=== PATIENT | male | born 1960 | race Caucasian/White ===

== ENCOUNTER 2020-07-30 09:17 | Inpatient (IN) ==
[2020-07-30] MEDS ORDERED: STAT IV Infusion **Titration per Protocol STA (09:40)
[2020-07-30] MEDS ORDERED: dilTIAZem HCl 5 MG/ML 5 ML VIAL IV STA (09:40)
[2020-07-30] MEDS ORDERED: SODIUM CHLORIDE 0.9% 500 ML IV SCH (09:45)
--- NOTE | 2020-07-30 09:46 | Emergency Department Note ---
Impression & Plan Dizziness, Weakness, Atrial fibrillation with rapid ventricular response, Elevated liver enzymes ED Provider Note NAME: MAGDA GIBSON AGE: 60 SEX: M : 1960 ARRIVES VIA: Walk-In INFORMANT: [Patient] ED PROVIDER(S): [Juan Flores MD] CHIEF COMPLAINT: Dizziness HISTORY OF PRESENT ILLNESS: The patient is a 60-year-old male presents to the ER with some dizziness and lightheadedness. He has noticed some mild shortness of breath. No chest pain. No cough, cold, congestion. No vomiting. He had a few episodes of loose stool but nothing bloody or persistent. The patient had taken his blood pressure at home and it was low. He stopped his blood pressure medication over the weekend but, this has not made him feel any better. He also stopped taking Wellbutrin, he was taking this to help quit smoking. Stopping this medication also made no difference. The patient notices that if he chirstelle over and then stands up he is very lightheaded. If he stands quickly, he feels he needs to sit back down. He was referred in by his doctors office at this morning. REVIEW OF SYSTEMS: See HPI for pertinent positives and negatives. A total of ten systems were reviewed and were otherwise negative. PMHx/PSHx: See Below SOCIAL HISTORY: See Below. PHYSICAL EXAM: GENERAL: Patient is in no acute distress. HEENT: No acute trauma, normocephalic atraumatic, mucous membranes moist, no nasal congestion, no scleral icterus. NECK: No stridor, no adenopathy, no meningismus, trachea is midline. LUNGS: Clear to auscultation bilaterally, no wheeze, no rhonchi, breath sounds equal. HEART: Tachycardic and irregular rhythm, no murmurs. ABDOMEN: Soft, nontender, bowel sounds positive, no hernias, no peritonitis. EXTREMITIES: No cyanosis or edema, full range of motion of all the joints without pain or difficulty, no signs for acute trauma. NEUROLOGIC: Oriented x 3, no acute motor or sensory deficits, no focal weakness. SKIN: No rash, no jaundice, no diaphoresis. DIFFERENTIAL DIAGNOSIS: Infection, dehydration, metabolic abnormality, hypo/hyperglycemia, atrial fibrillation or atrial flutter, dysrhythmia, SVT, electrolyte disturbance, anemia, hypoxia, cardiac sources, intracerebral event, toxicologic issues, stroke, TIA, as well as other pathologies. EMERGENCY DEPARTMENT COURSE/PROCEDURES: ECG: Indication was weakness. ECG shows atrial fibrillation with an occasional PVC. The rate is 152. There is no ST elevation. The QTc is 464. No PACs. Continuous Cardiac Monitoring: An order was placed for continuous cardiac monitoring. The monitor shows a rate of 155 with atrial fibrillation. Critical Care Note: I have personally spent 51 minutes of critical care time in the direct management of this patient. This includes bedside care, interpretation of diagnostic studies, and testing, discussion with consultants, patient, and family members, and other required patient management activities. This 51 minutes is in excess of all separately billable procedures. MEDICAL DECISION MAKING: There is no leukocytosis or worrisome anemia. There is a normal platelet count. No coagulopathy. No significant electrolyte abnormality or kidney failure. There are some mild liver enzyme elevations although, the bilirubin is normal. The patient's TSH is slightly elevated however, the T4 is normal. Covid testing is negative. ECG shows rapid atrial fibrillation, no acute ischemic change. Cardiac enzyme testing x1 is not consistent with acute cardiac injury. Chest x- ray does not show mediastinal widening, pneumonia or pneumothorax. Patient is given a 500 cc saline bolus. He received a bolus of IV diltiazem and was placed on a diltiazem drip. The diltiazem was titrated to effect. Patient presents with weakness and dizziness and what he thought was low blood pressure. He is actually in atrial fibrillation and I suspect this has been causing his issues. He is going to be hospitalized. I did speak with the patient and case management. The on-call hospitalist was consulted. Past Med/Surg History Medical History Hypertension Hypothyroidism Social History Smoking Status: Former smoker Tobacco Type: Smokeless Tobacco (Dip or Chew) Second Hand Exposure: No; Do You Dip or Chew Tobacco: No; Tobacco Cessation Education Requested by Patient: No Hx Substance Use: No Preferred Language: Slovenian Flat Bed Knitter Required: No Beliefs That Will Affect Care: None Current Living Situation: Spouse Other Information That Helps Us Care for You: No Feels Safe at Home: Yes Safety Concerns: Feels Safe At This Time Assistive Devices: Glasses Allergies Allergies Allergy/AdvReac Type Severity Reaction Status Date / Time No Known Allergies Allergy Unverified 07/30/20 10:06 Home Meds Home Medications Medication Instructions Recorded Confirmed bupropion HCl 150 mg PO DAILY 07/30/20 07/30/20 levothyroxine 175 mcg PO DAILY 07/30/20 07/30/20 telmisartan 20 mg PO DAILY 07/30/20 07/30/20 Results & Data (ED) Vital Signs Vital Signs - 24 hr 07/30/20 09:21 07/30/20 09:31 07/30/20 09:34 Temperature 36.2 C L Temperature Source Temporal Artery Scan Pulse Rate 77 157 H 146 H Pulse Rate [Left Finger] 155 H Pulse Rate from SpO2 Sensor 79 Pulse Rhythm Respiratory Rate 15 16 20 Respiratory Effort / Characteristics Non-Labored Spontaneous Non-Labored Spontaneous Respiratory Depth Normal Normal Respiratory Pattern Regular Regular Blood Pressure 126/84 142/101 H Blood Pressure [Right Arm] 142/101 H Blood Pressure Mean 98 114 Blood Pressure Mean [Right Arm] 114 Blood Pressure Position Sitting Blood Pressure Position [Right Arm] Lying Pulse Oximetry 97 98 98 Oxygen Delivery Method Room Air Room Air Sepsis Recent Fever Within 48 Hours No Sepsis New/Unexplained Change in Mental Status N/A Sepsis Action Taken by Nursing No Action Required 07/30/20 09:40 07/30/20 09:47 07/30/20 09:50 Temperature Temperature Source Pulse Rate 130 H 153 H 153 H Pulse Rate [Left Finger] Pulse Rate from SpO2 Sensor 82 83 Pulse Rhythm Irregular Respiratory Rate 17 21 18 Respiratory Effort / Characteristics Respiratory Depth Respiratory Pattern Blood Pressure Blood Pressure [Right Arm] Blood Pressure Mean Blood Pressure Mean [Right Arm] Blood Pressure Position Blood Pressure Position [Right Arm] Pulse Oximetry 98 96 97 Oxygen Delivery Method Room Air Room Air Sepsis Recent Fever Within 48 Hours Sepsis New/Unexplained Change in Mental Status Sepsis Action Taken by Nursing 07/30/20 10:00 07/30/20 10:10 07/30/20 10:20 Temperature Temperature Source Pulse Rate 123 H 118 H 124 H Pulse Rate [Left Finger] Pulse Rate from SpO2 Sensor 101 H 105 H 101 H Pulse Rhythm Respiratory Rate 16 21 14 Respiratory Effort / Characteristics Respiratory Depth Respiratory Pattern Blood Pressure 107/90 Blood Pressure [Right Arm] Blood Pressure Mean 95 Blood Pressure Mean [Right Arm] Blood Pressure Position Blood Pressure Position [Right Arm] Pulse Oximetry 96 92 97 Oxygen Delivery Method Sepsis Recent Fever Within 48 Hours Sepsis New/Unexplained Change in Mental Status Sepsis Action Taken by Nursing 07/30/20 10:30 07/30/20 10:40 07/30/20 10:50 Temperature Temperature Source Pulse Rate 140 H 134 H 138 H Pulse Rate [Left Finger] Pulse Rate from SpO2 Sensor 117 H 96 H 80 Pulse Rhythm Respiratory Rate 21 19 14 Respiratory Effort / Characteristics Respiratory Depth Respiratory Pattern Blood Pressure 119/90 Blood Pressure [Right Arm] Blood Pressure Mean 99 Blood Pressure Mean [Right Arm] Blood Pressure Position Blood Pressure Position [Right Arm] Pulse Oximetry 97 97 97 Oxygen Delivery Method Sepsis Recent Fever Within 48 Hours Sepsis New/Unexplained Change in Mental Status Sepsis Action Taken by Nursing 07/30/20 11:00 07/30/20 11:10 Temperature Temperature Source Pulse Rate 133 H 143 H Pulse Rate [Left Finger] Pulse Rate from SpO2 Sensor 92 H 86 Pulse Rhythm Respiratory Rate 16 13 Respiratory Effort / Characteristics Respiratory Depth Respiratory Pattern Blood Pressure 112/91 Blood Pressure [Right Arm] Blood Pressure Mean 98 Blood Pressure Mean [Right Arm] Blood Pressure Position Blood Pressure Position [Right Arm] Pulse Oximetry 98 96 Oxygen Delivery Method Sepsis Recent Fever Within 48 Hours Sepsis New/Unexplained Change in Mental Status Sepsis Action Taken by [facility] Medications Current Medication List: was personally reviewed by me Laboratory Data Attestation: I reviewed the patient's lab results. Result diagrams: 07/30/20 09:47 07/30/20 09:47 Lab Results 07/30/20 07/30/20 07/30/20 Range/Units 09:47 09:47 09:47 WBC 7.22 (4.8-10.8) K/uL RBC 5.03 (4.7-6.1) M/uL Hgb 16.5 (14.0-18.0) g/dL Hct 48.0 (42-52) % MCV 95.4 (80-100) fL MCH 32.8 (25-34) pg MCHC 34.4 (32-36) g/dL RDW Std Deviation 45.0 (36.4-46.3) fL RDW Coeff of Janelle 12.9 (11.5-14.5) % Plt Count 244 (130-400) K/uL MPV 9.5 (7.4-10.4) fL Immature Gran % (Auto) 0.1 % Neut % (Auto) 69.5 % Lymph % (Auto) 15.7 % [place] % (Auto) 13.2 % Eos % (Auto) 1.4 % Baso % (Auto) 0.1 % Neut # (Auto) 5.02 (1.4-6.5) K/uL Lymph # (Auto) 1.13 L (1.2-3.4) K/uL [place] # (Auto) 0.95 H (0.11-0.59) K/uL Eos # (Auto) 0.10 (0-0.5) K/uL Baso # (Auto) 0.01 (0-0.2) K/uL Immature Gran # (Auto) 0.01 (0.00-0.02) K/uL PT 10.1 (9.0-12.0) Seconds INR 1.0 (0.9-1.1) APTT 27.6 (21.0-31.0) Seconds PTT Ratio 1.0 Sodium 136 (136-145) mmol/L Potassium 3.9 (3.5-5.1) mmol/L Chloride 106 (98-107) mmol/L Carbon Dioxide 25 (21-32) mmol/L Anion Gap 5.0 (3-11) BUN 21 H (7-18) mg/dl Creatinine 0.84 (0.6-1.4) mg/dl Est Cr Clr Drug Dosing 120.5 ml/min Est GFR ( Amer) 111.1 ml/min Est GFR (Non-Af Amer) 95.8 ml/min BUN/Creatinine Ratio 24.8 H (10-20) Glucose 88 (70-99) mg/dl Calcium 8.9 (8.5-10.1) mg/dl Magnesium 2.2 (1.8-2.4) mg/dl Total Bilirubin 1.0 (0.2-1) mg/dl AST 56 H (15-37) U/L ALT 123 H (12-78) U/L Alkaline Phosphatase 67 (45-117) U/L Troponin I < 0.015 (0-0.045) ng/ml Total Protein 7.0 (6.4-8.2) gm/dl Albumin 3.9 (3.4-5.0) gm/dl Globulin 3.1 (2.5-4.0) gm/dl Albumin/Globulin Ratio 1.3 (0.9-2) TSH 4.660 H (0.300-4.500) uIu/ml Free T4 1.27 (0.8-1.6) ng/dl COVID-19 Eval Order SARS-CoV-2 (PCR) (Negative) 07/30/20 07/30/20 Range/Units 10:10 10:10 WBC (4.8-10.8) K/uL RBC (4.7-6.1) M/uL Hgb (14.0-18.0) g/dL Hct (42-52) % MCV (80-100) fL MCH (25-34) pg MCHC (32-36) g/dL RDW Std Deviation (36.4-46.3) fL RDW Coeff of Janelle (11.5-14.5) % Plt Count (130-400) K/uL MPV (7.4-10.4) fL Immature Gran % (Auto) % Neut % (Auto) % Lymph % (Auto) % [place] % (Auto) % Eos % (Auto) % Baso % (Auto) % Neut # (Auto) (1.4-6.5) K/uL Lymph # (Auto) (1.2-3.4) K/uL [place] # (Auto) (0.11-0.59) K/uL Eos # (Auto) (0-0.5) K/uL Baso # (Auto) (0-0.2) K/uL Immature Gran # (Auto) (0.00-0.02) K/uL PT (9.0-12.0) Seconds INR (0.9-1.1) APTT (21.0-31.0) Seconds PTT Ratio Sodium (136-145) mmol/L Potassium (3.5-5.1) mmol/L Chloride (98-107) mmol/L Carbon Dioxide (21-32) mmol/L Anion Gap (3-11) BUN (7-18) mg/dl Creatinine (0.6-1.4) mg/dl Est Cr Clr Drug Dosing ml/min Est GFR ( Amer) ml/min Est GFR (Non-Af Amer) ml/min BUN/Creatinine Ratio (10-20) Glucose (70-99) mg/dl Calcium (8.5-10.1) mg/dl Magnesium (1.8-2.4) mg/dl Total Bilirubin (0.2-1) mg/dl AST (15-37) U/L ALT (12-78) U/L Alkaline Phosphatase (45-117) U/L Troponin I (0-0.045) ng/ml Total Protein (6.4-8.2) gm/dl Albumin (3.4-5.0) gm/dl Globulin (2.5-4.0) gm/dl Albumin/Globulin Ratio (0.9-2) TSH (0.300-4.500) uIu/ml Free T4 (0.8-1.6) ng/dl COVID-19 Eval Order Covid19 at [facility] SARS-CoV-2 (PCR) NEGATIVE (Negative) Administered Medications Aspirin (Aspirin 81 Mg Ectab) 81 mg PO QAM [facility] Stop: 08/29/20 14:30 Last Admin: 07/30/20 15:38 Dose: 81 mg Documented by: [id number] Diltiazem HCl 125 mg/ Dextrose 125 mls @ 15 mls/hr IV .Q8H20M DANIELA; Protocol Stop: 08/29/20 09:44 Last Titration: 07/30/20 17:10 Dose: 10 mg/hr, 10 mls/hr Documented by: [id number] Cosigned by: [id number] Titration: 07/30/20 11:33 Dose: 15 mg/hr, 15 mls/hr Documented by: [id number] Cosigned by: [id number] Titration: 07/30/20 11:01 Dose: 10 mg/hr, 10 mls/hr Documented by: [id number] Cosigned by: [id number] Admin: 07/30/20 10:20 Dose: 5 mg/hr, 5 mls/hr Documented by: [id number] Cosigned by: [id number] Metoprolol Tartrate (Metoprolol Tartrate 25 Mg Tab) 25 mg PO BID DANIELA Stop: 08/29/20 20:59 Last Admin: 07/30/20 15:39 Dose: 25 mg Documented by: [id number] Discontinued Medications Diltiazem HCl (Diltiazem Hcl 5 Mg/Ml 5 Ml Vial) 15 mg IV NOW STA Stop: 07/30/20 09:41 Last Admin: 07/30/20 09:55 Dose: 15 mg Documented by: [id number] Cosigned by: [id number] Sodium Chloride (Nss) 500 mls @ 999 mls/hr IV .Q31M DANIELA Stop: 07/30/20 10:15 Last Infusion: 07/30/20 10:22 Dose: 0 mls/hr Documented by: [id number] Admin: 07/30/20 09:50 Dose: 999 mls/hr Documented by: [id number] Miscellaneous (Stat Iv Infusion Titration Per Protocol) 1 ea N/A NOW STA Stop: 07/30/20 09:41 Last Admin: 07/30/20 14:24 Dose: Not Given Documented by: [id number] Imaging Data Radiologist's Impression: Chest X-Ray 07/30/20 09:40 XR chest 1V portable CLINICAL HISTORY: weakness COMPARISON STUDY: November 2013 FINDINGS: The heart is borderline enlarged. There is no failure. There is no focal pulmonary consolidation. There are no pleural effusions.[ IMPRESSION: No active disease in the chest. ACT 112: Negative or not required by law. Electronically signed by: Gonsalo Dimas M.D. 07/30/2020 9:58 AM Discharge Plan Visit Data Chief Complaint: Dizziness Stated Complaint: LIGHT HEADED, REFERRED BY ED Provider: Juan Flores Discharge Problem: Dizziness, Weakness, Atrial fibrillation with rapid ventricular response, Elevated liver enzymes Patient Disposition: Admitted As Inpatient Condition: Fair Discharge Instructions Interventions: ED Discharge Assessment Last Done: 07/30/20 13:46
--- NOTE | 2020-07-30 09:59 | XRay Report ---
XR chest 1V portable CLINICAL HISTORY: weakness COMPARISON STUDY: November 2013 FINDINGS: The heart is borderline enlarged. There is no failure. There is no focal pulmonary consolid ation. There are no pleural effusions.[ IMPRESSION: No active disease in the chest. ACT 112: Negative or not required by law. Electronically signed by: Gonsalo Dimas M.D. 07/30/2020 9:58 AM
[2020-07-30 10:02] LABS: Basophils # (auto) 0.01 K/uL (0-0.2); Basophils % (auto) 0.1 %; Eosinophils % (auto) 1.4 %; Hemoglobin 16.5 g/dL (14.0-18.0); Immature Granulocytes # (auto) 0.01 K/uL (0.00-0.02); Immature Granulocytes % (auto) 0.1 %; Lymphocytes # (auto) 1.13 K/uL (1.2-3.4); Lymphocytes % (auto) 15.7 %; Mean Corpuscular Hemoglobin 32.8 pg (25-34); Mean Corpuscular Hgb Conc 34.4 g/dL (32-36); Mean Corpuscular Volume 95.4 fL (80-100); Mean Platelet Volume 9.5 fL (7.4-10.4); Monocytes # (auto) 0.95 K/uL (0.11-0.59); Monocytes % (auto) 13.2 %; Neutrophils # (auto) 5.02 K/uL (1.4-6.5); Neutrophils % (auto) 69.5 %; Platelet Count 244 K/uL (130-400); RDW Coefficient of Variation 12.9 % (11.5-14.5); Red Blood Count 5.03 M/uL (4.7-6.1); White Blood Count 7.22 K/uL (4.8-10.8)
[2020-07-30 10:16] LABS: Prothrombin Time 10.1 Seconds (9.0-12.0)
[2020-07-30] MEDS: dilTIAZem HCL 125 MG in DEXTROSE 5% 100 ML IV SCH ×2 (10:20→23:11)
[2020-07-30 10:24] LABS: Alanine Aminotransferase 123 U/L (12-78); Albumin Level 3.9 gm/dl (3.4-5.0); Aspartate Aminotransferase 56 U/L (15-37); BUN Creatinine Ratio 24.8 (10-20); Blood Urea Nitrogen 21 mg/dl (7-18); Calcium 8.9 mg/dl (8.5-10.1); Carbon Dioxide 25 mmol/L (21-32); Chloride 106 mmol/L (98-107); Creatinine Clr Calc Pharmacy 120.5 ml/min; Est GFR (African American) 111.1 ml/min; Est GFR (Non-African American) 95.8 ml/min; Glucose 88 mg/dl (70-99); Magnesium 2.2 mg/dl (1.8-2.4); Potassium 3.9 mmol/L (3.5-5.1); Sodium 136 mmol/L (136-145)
[2020-07-30 10:34] LABS: Albumin Globulin Ratio 1.3 (0.9-2); Alkaline Phosphatase 67 U/L (45-117); Globulin 3.1 gm/dl (2.5-4.0); Troponin I < 0.015 ng/ml (0-0.045)
[2020-07-30 10:47] LABS: T4 Free Thyroxine 1.27 ng/dl (0.8-1.6)
[2020-07-30 10:54] LABS: Partial Thromboplastin Time 27.6 Seconds (21.0-31.0)
--- NOTE | 2020-07-30 11:16 | History & Physical Report ---
Date of Service July 30, 2020 Assessment & Plan (1) Rapid atrial fibrillation: Admit to a PCU bed Continue Cardizem drip as started in ER, currently at 10mg/hr Will start oral metoprolol at 25 mg p.o. twice daily Hold ARB for now Patient's [id number] score is 1, hold full anticoagulation. Will start low- dose aspirin. Check fasting lipids Check 2D echo Trend troponins Consult cardiology, patient is requesting Dr. Britt who cares for his (2) Hypertension: Hold telmisartan as noted above Low-dose metoprolol along with Cardizem drip (3) Hypothyroidism: Continue levothyroxine 100 mcg daily TSH is 4.66 in ER History of Present Illness Chief Complaint: Generalized weakness Primary Care Provider: Criss Rondon DO This is a 60-year-old male with past medical history of hypertension and hypothyroidism presents today complaining of dizziness and generalized weakness. Patient is pleasant good historian. Patient tells me that he has been feeling mildly fatigued over the past several weeks. This became worse sometime last week. He found that he was much more weak than usual. He denied any shortness of breath or chest pain. Also denied palpitations. He took his blood pressure and noted o his cuff at home that it was low with systolic in the 80s. He noted that the heart rate was around 100 but he thought this was secondary to activity. He is on blood pressure medicine at home which he discontinued but felt no better. Over the weekend it started to become difficult for him to tolerate standing for long periods of time and he presents to the emergency room this morning for further evaluation. Here he was found to be in rapid atrial fibrillation and is now being admitted for this reason. At the time my evaluation, patient is in no cardiopulmonary distress. His heart rate is in the [id number] and his atrial fibrillation on monitor. Last documented blood pressure is 119/90. Patient does tell me he feels somewhat better. Allergies Allergy/AdvReac Type Severity Reaction Status Date / Time No Known Allergies Allergy Unverified 07/30/20 10:06 Home Medications Medication Instructions Recorded Confirmed Type bupropion HCl 150 mg PO DAILY 07/30/20 07/30/20 History levothyroxine 175 mcg PO DAILY 07/30/20 07/30/20 History telmisartan 20 mg PO DAILY 07/30/20 07/30/20 History Past Med/Surg History Social History Smoking Status: Current every day smoker Tobacco Type: Smokeless Tobacco (Dip or Chew) Preferred Language: Romanian Feels Safe at Home: Yes Review of Systems Constitutional: + fatigue and + weakness; no fever, no chills, no sweats, no body aches, no malaise, no weight loss, no weight gain and no daytime sleepiness Respiratory: no cough, no chest congestion, no dyspnea, no dyspnea on exertion, no pain on inspiration, no pain with cough and no stopping breathing during sleep Cardiovascular: + lightheadedness and + edema; no chest pain, no dyspnea, no orthopnea, no palpitations, no syncope and no calf pain Gastrointestinal: no abdominal pain, no nausea, no vomiting, no change in stools and no constipation Musculoskeletal: no back pain, no neck pain, no loss of height, no joint pain, no swelling and no stiffness Integumentary: no rash and no lesions Neurologic: no gait abnormality, no unsteadiness, no localized weakness and no generalized weakness Psychiatric: no behavioral changes and no depression Endocrine: no fatigue, no change in body appearance and no polyuria Physical Exam Constitutional: well developed, cooperative and comfortable; no acute distress Neck: trachea midline, no thyromegaly Respiratory: normal respiratory effort, lungs clear to auscultation Cardiovascular: Rate/Rhythm: + tachycardic and + irregularly irregular Vessels: no JVD and no carotid bruit Gastrointestinal (Abdomen): normal bowel sounds, soft, nontender, no hepatosplenomegaly Skin: no rashes, warm and dry Neurologic: PERRL, EOMI, accommodation nl, no face palsy, no dysarthria Results & Data Results & Data ([facility]) Vital Signs (Past 12 Hours) Vital Signs Temp Pulse Pulse Resp BP BP Pulse Ox 07/30/20 10:40 134 H 19 97 07/30/20 10:30 140 H 21 119/90 97 07/30/20 10:20 124 H 14 97 07/30/20 10:10 118 H 21 92 07/30/20 10:00 123 H 16 107/90 96 07/30/20 09:50 153 H 18 97 07/30/20 09:47 153 H 21 96 07/30/20 09:40 130 H 17 98 07/30/20 09:34 146 H 20 98 05/24/21 09:31 157 H 155 H 16 142/101 H 142/101 H 98 07/30/20 09:21 36.2 C L 77 15 126/84 97 PG Care Time/CCT Total # of Minutes Spent Total Time Spent with Patient: Total time spent is greater than 50% in coordination of care (as documented) at patient's floor/unit and/or counseling patient: Coding Level of Care Code 92433 Initial Inpt Care Lvl 3 Diagnoses Rapid atrial fibrillation I48.91 Hypertension I10 Hypothyroidism E03.9
[2020-07-30] MEDS ORDERED: ACETAMINOPHEN 325 MG TAB PO PRN (14:31)
[2020-07-30] MEDS ORDERED: ZOLPIDEM TARTRATE 5 MG TAB PO PRN (14:31)
--- NOTE | 2020-07-30 14:34 | Electrocardiogram Report ---
Test Reason : Blood Pressure : / mmHG Vent. Rate : 152 BPM Atrial Rate : 178 BPM P-R Int : 000 ms QRS Dur : 078 ms QT Int : 292 ms P-R-T Axes : 000 040 030 degrees QTc Int : 464 ms Atrial fibrillation with rapid ventricular response with premature ventricular or aberrantly conducte d complexes Abnormal ECG No previous ECGs available Confirmed by Nomi Veliz ([id number]) on 07/30/2020 2:34:30 PM Referred By: Criss Rondon Confirmed By:Nomi Veliz
[2020-07-30] MEDS: ASPIRIN 81 MG ECTAB PO SCH (15:38)
[2020-07-30] MEDS: METOPROLOL TARTRATE 25 MG TAB PO SCH ×2 (15:39→20:24)
--- NOTE | 2020-07-30 16:25 | XCELERA ---
[id number]
[2020-07-31 02:45] LABS: Basophils # (auto) 0.01 K/uL (0-0.2); Basophils % (auto) 0.1 %; Eosinophils # (auto) 0.12 K/uL (0-0.5); Eosinophils % (auto) 1.5 %; Hematocrit (blood only) 43.3 % (42-52); Hemoglobin 14.7 g/dL (14.0-18.0); Immature Granulocytes # (auto) 0.01 K/uL (0.00-0.02); Immature Granulocytes % (auto) 0.1 %; Lymphocytes # (auto) 1.67 K/uL (1.2-3.4); Lymphocytes % (auto) 20.8 %; Mean Corpuscular Hemoglobin 32.1 pg (25-34); Mean Corpuscular Hgb Conc 33.9 g/dL (32-36); Mean Corpuscular Volume 94.5 fL (80-100); Mean Platelet Volume 9.2 fL (7.4-10.4); Monocytes # (auto) 0.94 K/uL (0.11-0.59); Monocytes % (auto) 11.7 %; Neutrophils # (auto) 5.28 K/uL (1.4-6.5); Neutrophils % (auto) 65.8 %; Platelet Count 227 K/uL (130-400); RDW Coefficient of Variation 13.1 % (11.5-14.5); RDW Standard Deviation 45.4 fL (36.4-46.3); Red Blood Count 4.58 M/uL (4.7-6.1); White Blood Count 8.03 K/uL (4.8-10.8)
[2020-07-31 03:03] LABS: BUN Creatinine Ratio 25.7 (10-20); Blood Urea Nitrogen 20 mg/dl (7-18); Calcium 8.4 mg/dl (8.5-10.1); Carbon Dioxide 26 mmol/L (21-32); Chloride 110 mmol/L (98-107); Creatinine Clr Calc Pharmacy 117.1 ml/min; Est GFR (African American) 113.9 ml/min; Est GFR (Non-African American) 98.3 ml/min; Glucose 93 mg/dl (70-99); Magnesium 2.5 mg/dl (1.8-2.4); Potassium 4.1 mmol/L (3.5-5.1); Sodium 142 mmol/L (136-145)
[2020-07-31 03:08] LABS: Chol HDL Ratio 4; Cholesterol 164 mg/dl (0-200); HDL Cholesterol 41 mg/dl; LDL Cholesterol Calculated 93 mg/dl; Triglycerides 150 mg/dl (0-150); Troponin I < 0.015 ng/ml (0-0.045); VLDL Cholesterol 30 mg/dl
[2020-07-31] MEDS ORDERED: LEVOTHYROXINE SODIUM 175 MCG TABLET PO SCH (06:30)
[2020-07-31] MEDS: ASPIRIN 81 MG ECTAB PO SCH (07:57)
[2020-07-31] MEDS: METOPROLOL TARTRATE 25 MG TAB PO SCH (07:57)
[2020-07-31] MEDS ORDERED: buPROPion SR 150 MG TABCR PO SCH (09:00)
--- NOTE | 2020-07-31 09:37 | Cardiology Consultation ---
Date of Consultation July 31, 2020 Assessment & Plan (1) Rapid atrial fibrillation: Impression: 1. Afib with RVR now converted spontaneously to SR 2. HTN 3. Mild aortic dilatation Mr. Bobby is doing quite well and is now in a SR. He is not having any further symptoms. His troponins were normal x 3. His echocardiogram shows normal LVF, mild mitral regurg and mild aortic dilatation of 4.2 cm. Electrolytes are wnl. TSH was mildly elevated but T4 was normal. He should continue metoprolol at discharge. His CHADS-VASc is 1 and so he was not started on anticoagulation. We discussed risk of stroke in the setting of atrial fibrillation and that we may eventually decide to add anticoagulation. He can continue taking a daily baby aspirin. His lipids were acceptable. His ASCVD risk score is 7%. We can discuss initiating a statin at his follow up visit in the clinic. We discussed possible irritants to avoid for afib such as excessive caffeine, decongestants, Afrin, alcohol. He has has quit chew recently and plans to continue with abstinence. He mentions that there is a CO problem in his new house. He stays there unless the CO monitor is alerting him of a high level. We discussed that he should not stay in his house until the CO problem has been resolved. It is certainly possible that if he was suffering mild CO poisoning it could have triggered his arrhythmia. He did have a run of NSVT. His echocardiogram showed normal LVF. He should continue with metoprolol. He will follow up in the cardiology clinic in a month. History of Present Illness Attending Physician: Bigg Fernandez DO History of Present Illness Mr. Bobby presented to the hospital after feeling unwell over the weekend. He felt some fluttering in his chest as well as fatigue and sob. He was light headed and checked his blood pressure at work on Thursday and found that he was running in the 80s systolically. He was found to be in an Afib RVR when he presented to the ED. He converted to a sinus rhythm yesterday afternoon and has been maintained in one since. He feels well, no symptoms. Denies any further sob or palpitations. No chest pain or pressure. No edema. He was sinus rhythm overnight with one 15 beat episode of Vtach Allergies Allergy/AdvReac Type Severity Reaction Status Date / Time No Known Allergies Allergy Unverified 07/30/20 10:06 Home Medications Medication Instructions Recorded Confirmed Type bupropion HCl 150 mg PO DAILY 07/30/20 07/30/20 History levothyroxine 175 mcg PO DAILY 07/30/20 07/30/20 History metoprolol tartrate 25 mg PO BID 30 Days #60 tab 07/31/20 Rx Patient History Medical History Hypertension Hypothyroidism Family History (Updated 07/31/20 @ 09:51 by JOSÉ MIGUEL Childs) Father Hypertension Social History Smoking Status: Former smoker Tobacco Type: Smokeless Tobacco (Dip or Chew) Second Hand Exposure: No; Do You Dip or Chew Tobacco: No; Tobacco Cessation Education Requested by Patient: No Hx Substance Use: No Preferred Language: Maldivian Computer System Specialist Required: No Beliefs That Will Affect Care: None Current Living Situation: Spouse Other Information That Helps Us Care for You: No Feels Safe at Home: Yes Safety Concerns: Feels Safe At This Time Assistive Devices: Glasses Review of Systems Review of Systems: All systems reviewed & are unremarkable except as noted in HPI & below Physical Exam Constitutional: WD/WN, vitals as above Respiratory: normal respiratory effort, lungs clear to auscultation Cardiovascular: RRR, no murmur, no edema Musculoskeletal: no cyanosis or clubbing, extremities motor strength 5/5 Skin: no rashes, warm and dry Neurologic: moves all extremities and awake Psychiatric: A+Ox3, euthymic affect Results & Data ([facility]) Vital Signs (Past 12 Hours) Vital Signs Temp Pulse Pulse Resp BP Pulse Ox 07/31/20 09:00 56 L 07/31/20 07:05 36.5 C 57 L 20 122/73 96 07/31/20 03:02 36.6 C 58 L 17 114/77 96 07/30/20 23:42 36.9 C 52 L 17 109/71 95 07/30/20 23:08 56 L
--- NOTE | 2020-07-31 11:01 | Med Student Discharge Summary ---
Date of Service July 31, 2020 Admission HPI Per Admitting Provider This is a 60-year-old male with past medical history of hypertension and hypothyroidism presents today complaining of dizziness and generalized weakness. Patient is pleasant good historian. Patient tells me that he has been feeling mildly fatigued over the past several weeks. This became worse sometime last week. He found that he was much more weak than usual. He denied any shortness of breath or chest pain. Also denied palpitations. He took his blood pressure and noted o his cuff at home that it was low with systolic in the 80s. He noted that the heart rate was around 100 but he thought this was secondary to activity. He is on blood pressure medicine at home which he discontinued but felt no better. Over the weekend it started to become difficult for him to tolerate standing for long periods of time and he presents to the emergency room this morning for further evaluation. Here he was found to be in rapid atrial fibrillation and is now being admitted for this reason. At the time my evaluation, patient is in no cardiopulmonary distress. His heart rate is in the [id number] and his atrial fibrillation on monitor. Last documented blood pressure is 119/90. Patient does tell me he feels somewhat better. Admission Exam (Per Admitting) Constitutional well developed and well nourished; no acute distress this is the DISCHARGE exam Respiratory no respiratory distress Auscultation: lungs clear to auscultation bilaterally; no crackles, no rales and no rhonchi Cardiovascular Heart Sounds: normal S1 and normal S2; no gallop, no murmur and no cardiac rub Extremities: no calf tenderness and no pedal edema Gastrointestinal (Abdomen) Inspection/Auscultation: abdomen normal to inspection and normal bowel sounds; abdomen not distended Percussion/Palpation: abdomen soft; abdomen nontender, no guarding and abdomen not rigid Discharge Data Consultations 07/30/20 10:50 ED Decision to Admit Stat 07/30/20 14:31 Consult Cardiology Routine Consult Cardiology Routine Hospital Course (1) Atrial fibrillation with rapid ventricular response: 60 yo male with a pmh of HTN and hypothyroidism and MEGHNA presented to the ED with lightheadedness and was found to have Afib with RVR on EKG. He was given IV Diltiazem bolus and then put on a drip. Troponin levels were undetectable. He converted to sinus rhythm and has remained in sinus rhythm since then. Cardiac echo showed a normal EF of 55-60% with and mild regurgitation and borderline LV hypertrophy. TSH level 4.66 on Levo. His chadsvasc score is 1 with a 1.5% yearly risk of stroke. Weighing risk of bleeding with risk of forming and an embolism and termite control technician consequence of either complications, it is likly more favorable to have patient on anticoagulation treatment. 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 Plan -discuss starting Eliquis for stroke prevention with pcp -start metoprolol for rhythm control in addition to blood pressure control -patient does have a cpap but has not been using it. Follow up with pcp on restarting cpap and possibility of needing a new prescription. (2) Hypertension: chronic. Managed by pcp. Takes Telmisartan 20 mg. was held during hospital stay. Has had low BP readings with the Afib episodes. Metoprolol was started. Well tolerated by patient and BP has been stable during hospital stay Plan -stop Telmisartan -start metoprolol tartrate 25 mg for rhythm control in addition to blood pressure control -f/u with pcp in 2-3 weeks to further discuss BP managment and whether an additional medication in needed (3) Hypothyroidism: chronic. Managed by pcp. Takes Levothyroxine 175 mcg. Was given one home does during hospital stay. TSH 4.66 Plan -continue current home dose and outpatient f/c (4) Elevated liver enzymes: Slightly elevated liver enzymes noted on CMP. Patient only drinks alcohol occasionally so this is unlikely caused by alcohol used, could be due to ELIZABETH. -Follow up outpatient CMP with PCP in 2 weeks Discharge Plan Discharge Items Patient Disposition: Home - Self-Care Reason For Visit: RAPID AF Discharge Diagnosis: atrial fibrillation with rapid ventricular rate Condition on Discharge: Fair Activity: Per Instructions section Non-emergency contact: Primary Care Provider and Gis Coordinator Call non-emergency contact if: you have any medication questions, your symptoms worsen and your pain is worsening Follow-up/Referrals: Criss Rondon DO [Primary Care Provider] - 08/07/20 3:50 pm (YOU WILL SEE: JOSÉ MIGUEL French) Diet: Heart Healthy Addtl Attending Provider Instructions: You were seen and admitted for concerns regarding your fast heart rate. During this admission, your heart rhythm was determined to be in a rhythm called atrial fibrillation with rapid ventricular rate. This was corrected with medications, and you were able to have your heart rate maintained at an appropriate rate. We additionally discussed the role of a blood thinner in preventing strokes as a result of this different rhythm, and while we feel this is important in order to prevent strokes you declined to start this medication at this time. In continuing to discuss this medication with your family doctor and your certified travel counselor as while at this time you felt your heart being in the different rhythm, this can happen without you being able to feel it and that could potentially cause you to have a stroke in the future. Pending Studies at Discharge: No Stand-Alone Forms: My [facility] OOTU, Smoking Cessation Medications and DC Order Prescriptions: New metoprolol tartrate 25 mg Tablet 25 mg PO BID 30 Days Qty: 60 RF: 0 Continued levothyroxine 175 mcg tablet 175 mcg PO DAILY RF: 0 bupropion HCl 150 mg tablet sustained-release 12 hr 150 mg PO DAILY RF: 0 Discontinued telmisartan 20 mg tablet 20 mg PO DAILY RF: 0 Discharge Orders: Discharge Order (Routine); Ordered 07/31/20 Ordered By: Michael Weinstein/Other Patient Handouts: AFL/Afib, Stroke Prevent Live W Atrial Fib, Understanding Atrial Fibrillation Admission Data Admit Date/Time: 07/30/20 11:19 Attending Provider: Bigg Fernandez Admit Provider: Amadeo Amador Primary Care Provider: Criss Rondon Other Providers: Ildefonso Britt ; Amadeo Amador Other Interventions: Discharge Summary Assessment (RN) Last Done: 07/31/20 12:34 Supervising Attestation I personally examined the patient and verified all alejandro points of history and exam, discussed case, and agree with decision making with Zuhair HERNANDEZ. Feeling better and feeling up to going home. Notes that he has sleep apnea, but needs a new CPAP. Vitals noted, in general he is awake and alert pleasant no distress. HEENT normocephalic atraumatic mucous membranes moist. Breathing unlabored no accessory muscle use good effort. Otherwise as above. New onset atrial fibrillationnow converted to sinus rhythm, making rate control easily. Sent home on metoprolol. Discussed risks and benefits of anticoagul ation at a [id number] of 1for now he is opting to hold off, but discussed with him he should have ongoing discussions with his PCP. Should update CPAP device, given that untreated sleep apnea can certainly be provoking for A. fib. Slight transaminitisquestion fatty liveroutpatient follow-up. Stable for home, otherwise as above
--- NOTE | 2020-07-31 14:18 | Electrocardiogram Report ---
Test Reason : Blood Pressure : / mmHG Vent. Rate : 058 BPM Atrial Rate : 058 BPM P-R Int : 148 ms QRS Dur : 098 ms QT Int : 418 ms P-R-T Axes : 062 056 043 degrees QTc Int : 410 ms Sinus bradycardia Possible Left atrial enlargement Borderline ECG When compared with ECG of 30-JUL-2020 09:36, Sinus rhythm has replaced Atrial fibrillation Vent. rate has decreased BY 94 BPM Confirmed by Nomi Veliz ([id number]) on 07/31/2020 2:17:29 PM Referred By: Criss Rondon Confirmed By:Nomi Veliz
--- NOTE | 2020-07-31 19:04 | Billing Data ---
Date of Service July 31, 2020 Coding Level of Care Code D/C Day Management <30 mins
== END 2020-07-31 12:59 | disposition home or self-care (01) | DRG 310 ==
LOC: ED 09:17 → 2S 11:19 → SUATTDRO 11:19 → 2S 13:46

== ENCOUNTER 2024-03-15 05:59 | Observation (INO) ==
--- NOTE | 2024-03-08 13:23 | Anesthesiology Consultation ---
Date of Service March 08, 2024 Assessment & Plan (1) Encounter for pre-operative examination: Chart Review Chart Review: Acceptable Risk for Surgery and Patient NOT seen in Pre Admission Testing Per cardio phone note 01/11/24 in regards to holding AC prior to surgery= "He can hold his anticoagulation for up to 72 hours ahead of procedure per surgery and resume SIERRA." -Infectious Disease screening: Per PAT nursing assessment on 02/29/24. No known infectious disease contacts in past 10 days or current infectious disease symptoms. No recent travel outside the country. History Surgery Operation Date: 03/15/24 07:30 Proposed Procedures p Robotic Assisted Laparoscopic Radical Retropubic Prostatectomy, Possible Open, Possible Pelvic Lymph Node Dissection - Jian Mcmanus MD Height/Weight Height: 6 ft 2 in Weight: 104.326 kg Allergies Allergy/AdvReac Type Severity Reaction Status Date / Time ezetimibe Allergy Intermediate Edema, Verified 02/29/24 12:33 face, hands, legs Statins AdvReac Intermediate Joint Pain Uncoded 02/29/24 12:33 Medications Home Medications Medication Instructions Recorded Confirmed Last Taken bupropion HCl 150 mg 24 hr tablet, 150 mg PO QAM 05/12/22 02/29/24 Unknown extended release diltiazem HCl 180 mg 180 mg PO QPM 05/12/22 02/29/24 Unknown capsule,extended release 24 hr levothyroxine 25 mcg tablet 25 mcg PO QPM 05/12/22 02/29/24 Unknown telmisartan 20 mg tablet 20 mg PO QPM 05/12/22 02/29/24 Unknown levothyroxine 200 mcg tablet 250 mcg PO QPM 10/26/23 02/29/24 Unknown [place]ail Mushroom 1 unit PO QAM 02/29/24 02/29/24 Unknown apixaban 5 mg tablet (Eliquis) 5 mg PO BID 02/29/24 02/29/24 Unknown finasteride 5 mg tablet 5 mg PO QAM 02/29/24 02/29/24 Unknown meclizine 50 mg tablet (Antivert) 50 mg PO BID PRN Vertigo 02/29/24 02/29/24 Unknown tamsulosin 0.4 mg capsule 0.4 mg PO QAM 02/29/24 02/29/24 Unknown Past Medical History Medical History (Updated 03/08/24 @ 13:12 by Katrina Rodriguez PA-C) Arthritis Atrial fibrillation follows with dr. chang, no cardioversion on Eliquis BPH w urinary obs/LUTS Hx of basal cell carcinoma Hx of dizziness Hx of eczema Hx of seborrheic keratosis Hyperlipidemia Hypertension Hypothyroidism MEGHNA on CPAP Prostate cancer recently diagnosed per 01/11/24 urology note Past Family History Family History Father Hypertension Mother Hypertension Skin cancer Sister Hypothyroidism Past Surgical History Surgical History History of basal cell carcinoma (BCC) excision History of surgery on right wrist (2004) pin Hx of colonoscopy with polypectomy Hx of prostate biopsy (2023) cancer Social History Smoking Status: Former smoker Do You Dip or Chew Tobacco: No Smoking End Date: quit 30-40 years ago- uses zin nicotine pouches Hx Alcohol Use: Yes alcohol intake frequency: holidays/special occasions only Hx Substance Use: No substance use type: does not use Lab Results Anesthesia Preop Results Results Anesthesia Widget: WBC 7.54 K/ul (4.8-10.8) 03/04/24 Hgb 16.9 g/dl (14.0-18.0) 03/04/24 Hct 49.0 % (42.0-52.0) 03/04/24 Plt 268 K/uL (130-400) 03/04/24 Na 140 mmol/L (136-145) 03/04/24 K 4.0 mmol/L (3.5-5.1) 03/04/24 Cl 104 mmol/L (98-107) 03/04/24 CO2 28 mmol/L (21-32) 03/04/24 BUN 17 mg/dl (6-23) 03/04/24 Creat 0.95 mg/dl (0.6-1.4) 03/04/24 Glucose Level 78 mg/dl (70-99(Fasting)) 03/04/24 Testing Laboratory Results 03/04/24= URINE CULTURE: No growth- less than 1000 colonies/mL Electrocardiogram Date: 03/04/24 Findings: + NSR @ (66bpm) Normal EKG per cardio Chest X-Ray Date: 03/04/24 Findings: + NAD Echocardiogram Date: 07/30/20 EF: 55-60% LV Function: normal RWMA: + none Other Findings: + LVH (borderline/concentric) Valvular Disease: + MR (mild) Borderline left atrial enlargement Other Testing Cervical MRI 12/11/23= 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 No high-grade central canal narrowing. Normal signal of the cervical spinal cord.
[2024-03-15] MEDS: LR 15ML/HR IV SCH (06:31)
[2024-03-15] MEDS: HEPARIN SOD 5,000 UNIT/0.5 ML VIAL SQ SCH ×2 (06:35→20:46)
[2024-03-15] MEDS ORDERED: LIDOCAINE 2% 2 ML VIAL/AMP(20MG/ML) INFIL ONE (06:44)
[2024-03-15] MEDS ORDERED: ROCURONIUM BROMIDE 10 MG/ML 5 ML VIAL IV ONE (06:44)
[2024-03-15] MEDS ORDERED: PROPOFOL IV EMULSION 10 MG/ML 20 ML VIAL IV ONE (06:44)
[2024-03-15] MEDS ORDERED: ONDANSETRON INJ 2 MG/ML 2 ML VIAL ONE (06:44)
[2024-03-15] MEDS ORDERED: DEXAMETHASONE SOD INJ 4 MG/ML VIAL ONE (06:44)
[2024-03-15] MEDS ORDERED: SUGAMMADEX SODIUM 200 MG/2 ML VIAL IV ONE (06:45)
[2024-03-15] MEDS ORDERED: KETAMINE HCL 10MG/ML SYR ONE (06:45)
[2024-03-15] MEDS ORDERED: fentaNYL citrate PF 100 MCG/2 ML VIAL ONE (06:45)
[2024-03-15] MEDS ORDERED: MIDAZOLAM HCL 1 MG/ML 2ML VIAL ONE (06:45)
[2024-03-15] MEDS ORDERED: fentaNYL citrate PF 100 MCG/2 ML VIAL IV PRN (07:03)
[2024-03-15] MEDS ORDERED: ONDANSETRON INJ 2 MG/ML 2 ML VIAL IV PRN ×2 (07:03→12:42)
[2024-03-15] MEDS ORDERED: ATROPINE SULFATE 0.1 MG/ML 10ML SYR IV PRN (07:03)
[2024-03-15] MEDS ORDERED: ePHEDrine sulfate 50 MG/ML AMP IV PRN (07:03)
[2024-03-15] MEDS ORDERED: HYDROmorphone INJ 2 MG/ML SYR/VIAL IV PRN (07:03)
--- NOTE | 2024-03-15 07:23 | History & Physical Report ---
Date of Service March 15, 2024 Assessment & Plan (1) Prostate cancer: Plan: Moderate risk prostate cancer presenting for robotic prostatectomy risks, benefits, and expectations reviewed History of Present Illness Primary Care Provider: Criss Rondon DO prostate cancer presenting for definitive treatment via prostatectomy Allergies Allergy/AdvReac Type Severity Reaction Status Date / Time ezetimibe Allergy Intermediate Edema, Verified 03/15/24 06:15 face, hands, legs [id number] Reductase AdvReac Intermediate Joint Pain Verified 03/15/24 07:16 Inhibitor Home Medications Medication Instructions Recorded Confirmed Type bupropion HCl 150 mg 24 hr tablet, 150 mg PO QAM 05/12/22 03/15/24 History extended release diltiazem HCl 180 mg 180 mg PO QPM 05/12/22 03/15/24 History capsule,extended release 24 hr telmisartan 20 mg tablet 20 mg PO QPM 05/12/22 03/15/24 History levothyroxine 200 mcg tablet 200 mcg PO QPM 10/26/23 03/15/24 History [place] Tail Mushroom 1 unit PO QAM 02/29/24 03/15/24 History apixaban 5 mg tablet (Eliquis) 5 mg PO BID 02/29/24 03/15/24 History finasteride 5 mg tablet 5 mg PO QAM 02/29/24 03/15/24 History meclizine 50 mg tablet (Antivert) 50 mg PO BID PRN Vertigo 02/29/24 03/15/24 History tamsulosin 0.4 mg capsule 0.4 mg PO QAM 02/29/24 03/15/24 History levothyroxine 50 mcg tablet 50 mcg PO QPM 03/15/24 03/15/24 History Past Med/Surg History Problem List Encounter for pre-operative examination Prostate cancer BPH w urinary obs/LUTS MEGHNA on CPAP Low testosterone Left arm weakness Elevated PSA Weakness (Acute) Hypothyroidism Hypertension Hx of colonic polyps Medical History Atrial fibrillation follows with dr. chang, no cardioversion on Eliquis Hx of dizziness Hx of seborrheic keratosis Hx of eczema Arthritis BPH w urinary obs/LUTS Prostate cancer recently diagnosed per 01/11/24 urology note MEGHNA on CPAP Hypothyroidism Hx of basal cell carcinoma Hyperlipidemia Hypertension Surgical History Hx of prostate biopsy (2023) cancer History of basal cell carcinoma (BCC) excision Hx of colonoscopy with polypectomy History of surgery on right wrist (2004) pin Family History Father Hypertension Mother Hypertension Skin cancer Sister Hypothyroidism Social History Smoking Status: Former smoker Tobacco Type: Cigarettes Smoking End Date: quit 30-40 years ago- uses zin nicotine pouches; Second Hand Exposure: No; Do You Dip or Chew Tobacco: No; Tobacco Cessation Education Requested by Patient: No Hx Alcohol Use: Yes Hx Substance Use: No Preferred Language: Swedish Communication Ability: Effective Side Laster Tack Required: No Beliefs That Will Affect Care: Muslim Muslim Beliefs: moravian Current Living Situation: Spouse Other Information That Helps Us Care for You: No Feels Safe at Home: Yes Safety Concerns: Feels Safe At This Time Assistive Devices: CPAP Physical Exam Constitutional: well developed and well nourished Neck: neck nontender Respiratory: normal respiratory effort; no respiratory distress and does not use accessory muscles Cardiovascular: Rate/Rhythm: regular rate Vessels: radial pulses present Extremities: no edema Gastrointestinal (Abdomen): Inspection/Auscultation: abdomen normal to inspection Percussion/Palpation: abdomen soft; abdomen nontender and no guarding Musculoskeletal: Head/Neck/Chest: normocephalic and head atraumatic Extremities: extremities normal to inspection Skin: no rashes and no lesions Trauma: no evidence of skin trauma Neurologic: awake; not obtunded Speech / Cognition: normal speech Motor/Sensory: no tremor Psychiatric: Orientation: alert and oriented x 3 Genitourinary: no CVA tenderness Lymphatic: no lymphadenopathy Results & Data Vital Signs (Past 12 Hours) Vital Signs Temp Pulse Resp BP Pulse Ox O2 Del Method 03/15/24 06:22 36.8 C 62 18 142/78 H 95 Room Air
[2024-03-15] MEDS: ceFAZolin 3000MG 3,000 MG/72.5 ML BAG IV SCH (07:35)
[2024-03-15] MEDS ORDERED: ePHEDrine sulfate 50 MG/5 ML SYR ONE (08:19)
[2024-03-15] MEDS ORDERED: KETOROLAC 30 MG/ML VIAL ONE (08:44)
[2024-03-15] MEDS: BUPIVACAINE 0.5 % 5 MG/1 ML MPF 30ML VIAL ONE (10:24)
--- NOTE | 2024-03-15 10:43 | Operative Report ---
PG Post Operative Report Pre & Post Diagnosis Operation Date: 03/15/24 07:30 Pre-Op Diagnosis: Prostate cancer Post-Op Diagnosis: Prostate cancer I identified the patient and participated in the time-out.: Yes Procedure Operation Date: 03/15/24 07:30 Actual Procedures p Robotic Assisted Laparoscopic Radical Retropubic Prostatectomy, Pelvic Lymph Node Dissection(Not Applicable) - Jian Mcmanus MD Surgeon Jian Mcmanus MD Aeronautics Teacher Grace Ferguson Estimated Blood Loss 50 Findings Consistent with Post-Op Diagnosis Specimens 1. Periprostatic fat 2. Left pelvic lymph nodes 3. Right pelvic lymph nodes 4. Prostate and seminal vesicles Description of Procedure The patient was identified in the preoperative holding area, appropriate informed consents were reviewed and completed, and he was transported to the operating suite. Subcutaneous heparin was administered in the pre-operative holding area. Upon arrival in the operating suite, he received appropriate antibiotics and general anesthesia. He was positioned in dorsal lithotomy, a B&O suppository was inserted after digital rectal exam, and he was prepped and draped in standard fashion. A Ashraf catheter was inserted in the sterile field. A Veress needle was passed per umbilicus with uniform insufflation of the abdomen to 15mmHg. He was placed in steep Trendelenburg position. A periumbilical incision was then made to accommodate a 12mm Visiport with 10mm 0degree laparoscope. Inspection of the abdomen was carried out, and there was no evidence of traumatic entry or injury secondary to the Veress needle. After confirming a clear anterior abdominal wall, ports were subsequently placed in standard robotic prostatectomy fashion without incident. To begin the robotic portion of the case, the left lateral aspect of the sigmoid was mobilized off of the left pelvic side wall to allow the pouch of Vinny to be appropriately visualized. I then made an incision in the pouch of Vinny, overlying the seminal vesicles. Both SVs as well as the ampullae of the vasa were entirely dissected, with the vasa transected 3cm from the prostate. The medial umbilical ligaments were then controlled with bipolar electrocautery just inferior to the umbilicus. Following cauterization, they were divided utilizing monopolar cautery. A peritoneal incision was carried from this location to the medial aspect of the internal inguinal rings bilaterally with care to avoid opening through the ring. This incision was concluded when the vas deferens was reached. Dissection of the bladder and prostate off of the posterior aspect of the pubic arch was completed allowing full visualization of the prostate. The fat overlying the prostate was removed en bloc and passed off the table as a specimen labeled "periprostatic fat". The endopelvic fascia was cleared during this portion of the procedure, and subsequently opened - first on the right and then the left. The incision through the endopelvic fascia began near the prostate-bladder junction and was carried to the apex with extreme care to preserve all lateral levator musculature as well as the periurethral musculature and sphincter complex. I additionally preserved the puboprostatic ligaments. I then controlled the DVC with a 3-0 V-lock suture in overlapping/figure of 8 fashion. The lymph node dissection was then conducted. External iliac vessels were identified on the pelvic side wall. The packet of fat and lymphatic tissue that resides just under the iliac vein was elevated and off of the vein with a split and roll technique. The packet was dissected laterally to the circumflex vein and distally to the obturator nerve which was preserved. The proximal aspect of the packet was carried towards the bifurcation of the iliac vessels. A combination of monopolar and bipolar cautery were used to assist with control. After completing the dissection on both sides, the packets were collected and passed off of the table as specimens labeled "pelvic lymph nodes". My attention then returned to the prostate, with identification of the bladder neck aided by gentle traction on the Ashraf catheter and lateral to medial pressure at the presumed level of the bladder neck with the robotic instruments. An anterior cystotomy was made, the Ashraf balloon deflated and the catheter guided through the incision to allow anterior retraction. I attempted to preserve maximal bladder neck musculature as I circumferentially dissected around the bladder neck. After incision through the posterior aspect of the mucosa, the dissection was carried through detrusor muscle until the bilateral ampullae of the vasa were identified. The previously dissected vasa and SVs were brought through the incision and used to elevated the prostate anteriorly. A posterior plane behind the prostate was then developed - splitting Denonvilliers's fascia. This dissection was carried as far as possible towards the apex as well as far as possible laterally. An incision in the lateral prostatic fascia was then made bilaterally to facilitate control of the vascular pedicles and preservation of the nerve bundles. Vasculature running along the posterior/lateral aspect of the prostate was preserved as well as the tissue containing the nerves. The pedicles were then controlled with a series of Weck clips. The apical attachments of the prostate were remaining at that stage. The DVC was divided after control with bipolar cautery over the prostate. Continuous inspection from anterior and lateral views allowed me to closely follow the apical contour of the prostate and maximally preserve urethral length and tissue. The prostate was entirely freed at that point, and collected in an EndoCatch bag before being moved out of the field of vision. Hemostasis was confirmed and anastomosis of the bladder and urethra was completed utilizing a double armed V- Lock stitch. A new Ashraf catheter was inserted and the anastomosis tested with irrigation. There was no evidence of leak. A breonna style stitch was placed bilaterally to functionally marsupialize the area of the lymph node dissection. The robot was undocked, the specimen extracted through expansion of the hetal- umbilical camera port. The fascia was closed with a series of 0-PDS figure of 8 stitches. The right staff physical therapy assistant port was closed in two layers - with a figure of 8 0-Vicryl to reapproximate the fascia followed by 4-0 Monocryl to close the skin. Monocryl was used to close all other skin incisions. All wounds were dressed with Dermabond. The case was concluded and the patient taken to the PACU in stable condition. Grace Ferguson assisted from incision to closure. I attest to the content of the Intraoperative Record and any orders documented therein. Any exceptions are noted below.
[2024-03-15 11:11] LABS: Basophils # (auto) 0.03 K/uL (0.00-0.20); Basophils % (auto) 0.4 %; Eosinophils # (auto) 0.05 K/uL (0.00-0.50); Eosinophils % (auto) 0.6 %; Hematocrit (blood only) 45.8 % (42.0-52.0); Hemoglobin 16.2 g/dl (14.0-18.0); Immature Granulocytes # (auto) 0.04 K/uL (0.01-0.20); Immature Granulocytes % (auto) 0.5 %; Lymphocytes # (auto) 0.71 K/uL (1.20-3.40); Lymphocytes % (auto) 9.1 %; Mean Corpuscular Hemoglobin 32.5 pg (25.0-34.0); Mean Corpuscular Hgb Conc 35.4 g/dL (32.0-36.0); Mean Platelet Volume 8.9 fL (9.4-12.4); Monocytes # (auto) 0.18 K/uL (0.11-0.59); Monocytes % (auto) 2.3 %; Neutrophils % (auto) 87.1 %; Platelet Count 236 K/uL (130-400); RDW Coefficient of Variation 11.9 % (11.5-14.5); RDW Standard Deviation 39.9 fL (36.4-46.3); Red Blood Count 4.98 M/uL (4.70-6.10); White Blood Count 7.81 K/ul (4.8-10.8)
[2024-03-15 11:33] LABS: BUN Creatinine Ratio 19.8 (10-20); Calcium 8.5 mg/dl (8.6-10.3); Creatinine Clr Calc Pharmacy 112.3 ml/min; Potassium 4.4 mmol/L (3.5-5.1)
--- NOTE | 2024-03-15 12:34 | Anesthesiology Progress Note ---
Date of Service March 15, 2024 Anesthesia Post Procedure Vital Signs Vital Signs: Temp Pulse Pulse Resp BP Pulse Ox O2 Del Method 03/15/24 11:55 78 14 138/81 96 Nasal Cannula 03/15/24 11:40 80 15 137/81 97 Nasal Cannula 03/15/24 11:25 36.5 C 75 16 135/81 95 Nasal Cannula 03/15/24 11:15 81 12 134/81 97 Nasal Cannula 03/15/24 11:05 85 17 114/79 95 Oxymask 03/15/24 10:55 90 15 130/74 99 Oxymask 03/15/24 10:47 36.5 C 77 16 125/77 94 Oxymask 03/15/24 06:22 36.8 C 62 18 142/78 H 95 Room Air O2 Flow Rate 03/15/24 11:55 2 03/15/24 11:40 2 03/15/24 11:25 2 03/15/24 11:15 3 03/15/24 11:05 7 03/15/24 10:55 11 03/15/24 10:47 11 03/15/24 06:22 Transfer of Care Handoff Completed per policy Notes Mental Status: alert / awake / arousable and participated in evaluation Patient Amnestic to Procedure: Yes Nausea / Vomiting: adequately controlled Pain: adequately controlled Airway Patency, RR, SpO2: stable & adequate BP & HR: stable & adequate Hydration State: stable & adequate Anesthetic Complications: no major complications apparent and Pt Satisfied with anesthetic care
[2024-03-15] MEDS ORDERED: oxyCODONE HCL IR 5 MG TAB (IMMEDIATE RELEASE) PO PRN ×2 (12:42)
[2024-03-15] MEDS ORDERED: MECLIZINE HCL 25 MG TAB PO PRN (12:42)
[2024-03-15] MEDS ORDERED: MoRPHine SULFATE 2 MG/ML CARP IV PRN ×2 (12:42)
[2024-03-15] MEDS: SODIUM CHLORIDE 0.9% 1,000 ML IV SCH (15:04)
[2024-03-15] MEDS: ceFAZolin 2000MG 2,000 MG/15 ML SYR IV SCH (15:04)
[2024-03-15] MEDS: dilTIAZem HCL 180 MG CAPCR PO SCH (19:37)
[2024-03-15] MEDS: DOCUSATE SODIUM 100 MG CAP PO SCH (20:46)
[2024-03-15] MEDS: LOSARTAN POTASSIUM 25 MG TAB PO SCH (21:44)
[2024-03-15] MEDS: LEVOTHYROXINE SODIUM 50 MCG TABLET PO SCH (21:45)
[2024-03-15] MEDS: LEVOTHYROXINE SODIUM 200 MCG TABLET PO SCH (21:45)
[2024-03-15 22:33] VITALS: TEMP 98.2
[2024-03-16] MEDS: buPROPion XL 150 MG TABCR PO SCH (07:54)
[2024-03-16 07:59] VITALS: BP 154/91; PULSE 60; RESP 12; O2SAT 94
[2024-03-16] MEDS: ACETAMINOPHEN 325 MG TAB PO PRN (08:00)
[2024-03-16 08:29] LABS: Basophils # (auto) 0.02 K/uL (0.00-0.20); Basophils % (auto) 0.1 %; Hematocrit (blood only) 44.2 % (42.0-52.0); Hemoglobin 15.1 g/dl (14.0-18.0); Immature Granulocytes % (auto) 0.6 %; Lymphocytes # (auto) 0.73 K/uL (1.20-3.40); Lymphocytes % (auto) 4.3 %; Mean Corpuscular Hemoglobin 31.9 pg (25.0-34.0); Mean Corpuscular Hgb Conc 34.2 g/dL (32.0-36.0); Mean Corpuscular Volume 93.2 fL (80.0-100.0); Mean Platelet Volume 9.5 fL (9.4-12.4); Monocytes # (auto) 1.61 K/uL (0.11-0.59); Monocytes % (auto) 9.5 %; Neutrophils # (auto) 14.43 K/uL (1.40-6.50); Neutrophils % (auto) 85.5 %; Platelet Count 283 K/uL (130-400); RDW Coefficient of Variation 11.9 % (11.5-14.5); Red Blood Count 4.74 M/uL (4.70-6.10); White Blood Count 16.89 K/ul (4.8-10.8)
[2024-03-16 08:41] LABS: BUN Creatinine Ratio 19.2 (10-20); Calcium 8.1 mg/dl (8.6-10.3); Creatinine Clr Calc Pharmacy 132.3 ml/min; Potassium 4.1 mmol/L (3.5-5.1)
--- NOTE | 2024-03-16 09:25 | Urology Progress Note ---
Date of Service March 16, 2024 Assessment & Plan (1) Prostate cancer: Plan Postoperative day #1 status post prostatectomy Progressing extremely well Plan for discharge home this morning Admission and Anticipated Discharge Date Admission Date: March 15, 2024 Subjective Subjectively doing great Was feeling well last night Ambulatory Tolerated breakfast this morning Labs all appropriate Pain very well-controlled Physical Exam Physical Exam: Incisions appropriate Minimal ecchymosis at the extraction site No swelling, not distended Results & Data Vital Signs (Past 12 Hours) Vital Signs Temp Pulse Resp BP Pulse Ox O2 Del Method 03/16/24 07:58 36.8 C 60 12 154/91 H 94 Room Air 03/16/24 02:57 36.8 C 88 18 130/85 97 Room Air 03/15/24 22:32 36.8 C 97 H 16 129/70 93 Room Air PG Care Time/CCT Total # of Minutes Spent Total Time Spent with Patient: Total time spent is greater than 50% in coordination of care (as documented) at patient's floor/unit and/or counseling patient: Coding Level of Care Code None Diagnoses Prostate cancer C61
--- NOTE | 2024-03-16 13:06 | Discharge Summary ---
Date of Service March 16, 2024 Admission HPI Per Admitting Provider 64 yo male with prostate cancer presenting for definitive treatment via prostatectomy Admission Exam Per Admitting Provider Constitutional: well developed and well nourished Neck: neck nontender Respiratory: normal respiratory effort; no respiratory distress and does not use accessory muscles Cardiovascular: Rate/Rhythm: regular rate Vessels: radial pulses present Extremities: no edema Gastrointestinal (Abdomen): Inspection/Auscultation: abdomen normal to inspection Percussion/Palpation: abdomen soft; abdomen nontender and no guarding Musculoskeletal: Head/Neck/Chest: normocephalic and head atraumatic Extremities: extremities normal to inspection Skin: no rashes and no lesions Trauma: no evidence of skin trauma Neurologic: awake; not obtunded Speech / Cognition: normal speech Motor/Sensory: no tremor Psychiatric: Orientation: alert and oriented x 3 Genitourinary: no CVA tenderness Lymphatic: no lymphadenopathy Principal Diagnosis Prostate cancer Discharge Exam Constitutional well developed and well nourished; no acute distress Respiratory normal respiratory effort; no respiratory distress and no labored breathing Gastrointestinal (Abdomen) Incisions appropriate Minimal ecchymosis at the extraction site No swelling, not distended Musculoskeletal Head/Neck/Chest: normocephalic Skin no rashes, warm and dry Neurologic moves all extremities and awake Psychiatric A+Ox3, euthymic affect Genitourinary Ashraf intact draining clear yellow urine Discharge Data Allergies Allergy/AdvReac Type Severity Reaction Status Date / Time ezetimibe Allergy Intermediate Edema, Verified 03/15/24 06:15 face, hands, legs [place]-HBF-FwA Reductase AdvReac Intermediate Joint Pain Verified 03/15/24 07:16 Inhibitor Procedures Performed Operation Date: 03/15/24 07:30 Actual Procedures p Robotic Assisted Laparoscopic Radical Retropubic Prostatectomy, Pelvic Lymph Node Dissection(Not Applicable) - Jian Mcmanus MD Hospital Course (1) Prostate cancer: Plan 64-year-old male admitted for robotic prostatectomy. Patient tolerated procedure well. No acute issues postoperatively. He remained afebrile and hemodynamically stable. Labs were appropriate. Patient reported minimal pain. Ambulated without issue. Tolerated a diet. Ashraf catheter with appropriate output and draining clear yellow urine. Patient was discharged home on postop day #1 with a Ashraf catheter in place. He was in stable condition at time of discharge. Discharge instructions were reviewed and all questions were answered. Appropriate follow-up in place. Total Time Total Time Spent Total Time Spent (In Minutes): 15 Discharge Plan Discharge Items Patient Disposition: Home - Self-Care Reason For Visit: Malignant Neoplasm of Prostate, BPH with [place] Discharge Diagnosis: Prostate Cancer Condition on Discharge: Good Activity: Per Instructions section Lifting: No more than 10 pounds Bathing Comment: OK to shower. No tub baths or soaks. Sexual Activity: Wait until after follow-up appointment Exercise/Sports: Wait until after follow-up appointment Driving/Machine Use: Do not drive if taking prescription pain medication. Non-emergency contact: Surgeon and Urologist Call non-emergency contact if: you have any medication questions, your symptoms worsen, your pain is not controlled, you have a fever, your wound has increased redness, your wound has increased drainage and your wound pain has increased Follow-up/Referrals: Jian Mcmanus MD [Physician] - 03/31/24 11:45 am Criss Rondon DO [Primary Care Provider] - Urology,Nurse [FAKE FOR SCHEDULES] - 03/21/24 10:40 am Diet: Regular Addtl Attending Provider Instructions: Please take all medications as prescribed and keep all follow-ups as scheduled. Please call our office at [phone] with any questions, concerns or need to reschedule appointments for any reason. We are happy to assist you We have sent an antibiotic to your pharmacy of choice. Please begin antibiotic as prescribed the day BEFORE your scheduled catheter removal at [facility]. Please continue antibiotic every 12 hours until complete. Activity: We recommend having someone with you for the first few days after surgery to help care for you. For the first 2 weeks after surgery, we would like you to get up and walk around your house. However, we recommend limit physical activity that would increase your heart rate. This will allow your body to rest and heal. Take naps if you feel tired. Don't lift anything heavier than 10 pounds, mow the law or ride a bicycle until your follow-up appointment. Please avoid long car rides. Home Care: Unless directed otherwise, drink 6 to 8 glasses of water a day (enough to keep your urine light colored). This will also help keep a healthy flow of urine. We recommend using a stool softener for the first two weeks to avoid constipation. Ashrfa Catheter or Suprapubic Catheter care: Keep the catheter well secured with either a leg back or leg strap with large bag. Empty your bag when it's about half full. You may notice some blood in the bag. This is normal after surgery and while the catheter is in place. Use mild soap (such as Dove or Dial) and water to wash the catheter and the head of your penis daily, or more frequently if needed. Return to your normal diet, we encourage good protein intake to promote healing. You may shower as normal. Please avoid tub baths or soaking until catheter removed and incisions well healed. Wearing sweat pants while you have the catheter is recommended, they will be more comfortable. Follow-up Your follow up appointments for having your catheter removed, and follow up with your physician should already be scheduled. If you have any questions regarding this, please contact our office. Your final pathology report will be discussed at your physician follow-up appointment. Call [facility] at [phone] right away if you have any of the following: Chest pain or trouble breathing (call 550 or go to the hospital) Fever of 101F or higher, uncontrolled vomiting Heavy bleeding, clots, or bright red blood from the catheter Catheter that falls out or stops draining Foul-smelling discharge from your catheter Redness, swelling, warmth, or increased pain at your incision site Drainage, pus, or bleeding from your incision Pending Studies at Discharge: Yes (pathology) Stand-Alone Forms: My [facility] [employer], Smoking Cessation Medications and DC Order Prescriptions: New ciprofloxacin HCl 500 mg tablet 500 mg PO BID 3 Days Qty: 6 0RF Rx Instructions: Start 1 day prior to catheter removal docusate sodium [Colace] 100 mg capsule 100 mg PO BID Qty: 30 0RF Rx Instructions: Take twice daily for 2 weeks, then as needed thereafter oxycodone 5 mg tablet 5 mg PO Q8H PRN (Reason: pain) Qty: 7 0RF Continued bupropion HCl 150 mg tablet extended release 24 hr 150 mg PO QAM diltiazem HCl 180 mg capsule,extended release 24hr 180 mg PO QPM telmisartan 20 mg tablet 20 mg PO QPM levothyroxine 200 mcg tablet 200 mcg PO QPM Rx Instructions: take with 50 mcg to total 250mg Eliquis 5 mg tablet 5 mg PO BID [place] Mushroom 1 unit 1 unit PO QAM meclizine [Antivert] 50 mg tablet 50 mg PO BID PRN (Reason: Vertigo) tamsulosin 0.4 mg capsule 0.4 mg PO QAM levothyroxine 50 mcg Tablet 50 mcg PO QPM Rx Instructions: takes with 200mg to total 250 mg Discontinued finasteride 5 mg tablet 5 mg PO QAM Discharge Orders: Discharge Order (Routine); Ordered 03/16/24 Ordered By: Grace Weinstein/Other Patient Handouts: Leg Bag Care Dc, Ashraf Catheter Male Ch Admission Data Admit Date/Time: 03/15/24 10:55 Attending Provider: Jian Mcmanus Admit Provider: Jian Mcmanus Primary Care Provider: Criss Rondon Other Interventions: Discharge Summary Assessment (RN) Last Done: 03/16/24 10:37 Coding Level of Care Code 52281 IN/OBS DISCH 30 MIN/LESS Diagnoses Prostate cancer C61
== END 2024-03-16 11:45 | disposition home or self-care (01) | DRG 708 ==
LOC: ASU 05:59 → 3N 10:55 → INTOOBSV 10:55

== ENCOUNTER 2024-03-23 12:59 | Observation (INO) ==
[2024-03-23 13:21] VITALS: TEMP 97.9
[2024-03-23 13:46] LABS: Basophils # (auto) 0.04 K/uL (0.00-0.20); Basophils % (auto) 0.2 %; Eosinophils # (auto) 0.01 K/uL (0.00-0.50); Eosinophils % (auto) 0.1 %; Hematocrit (blood only) 50.9 % (42.0-52.0); Hemoglobin 18.1 g/dl (14.0-18.0); Immature Granulocytes # (auto) 0.08 K/uL (0.01-0.20); Immature Granulocytes % (auto) 0.5 %; Lymphocytes # (auto) 0.75 K/uL (1.20-3.40); Lymphocytes % (auto) 4.6 %; Mean Corpuscular Hemoglobin 32.1 pg (25.0-34.0); Mean Corpuscular Hgb Conc 35.6 g/dL (32.0-36.0); Mean Corpuscular Volume 90.2 fL (80.0-100.0); Mean Platelet Volume 9.1 fL (9.4-12.4); Monocytes # (auto) 1.81 K/uL (0.11-0.59); Monocytes % (auto) 11.2 %; Neutrophils # (auto) 13.54 K/uL (1.40-6.50); Neutrophils % (auto) 83.4 %; Platelet Count 350 K/uL (130-400); RDW Standard Deviation 39.5 fL (36.4-46.3); Red Blood Count 5.64 M/uL (4.70-6.10); White Blood Count 16.23 K/ul (4.8-10.8)
--- NOTE | 2024-03-23 13:56 | Emergency Department Note ---
Impression & Plan MARÍA (acute kidney injury), Acute urinary retention, Bladder leak, H/O prostatectomy, Leukocytosis ED Provider Note NAME: MAGDA GIBSON AGE: 64 SEX: M : 1960 ARRIVES VIA: Walk-In INFORMANT: [Patient] ED PROVIDER(S): [Juan Flores MD] CHIEF COMPLAINT: Infection, wound HISTORY OF PRESENT ILLNESS: The patient is a 64-year-old male who states that he had a prostate removal surgery on the seventh, 8 days ago. The patient states that 2 days ago, he had his Ashraf catheter removed. In the last 2 days, he has developed contusion about the area of the incision and, he has felt some bloating with some leakage of fluid from his surgical incisions. He tried 2 fleets enemas last night which maybe helped a bit. He has lower abdominal pain that is worse to take of breath. No fever. He did have 1 vomitus, he still feels nauseated. The patient states that his urine output is not great but he is able to urinate spontaneously. There has been no cough or congestion. He is not short of breath. He was referred to the ER by his surgical service. PMHx/PSHx/Social Hx: See Below PHYSICAL EXAM: GENERAL: Patient is in mild distress from pain. HEENT: No acute trauma, normocephalic atraumatic, mucous membranes moist, no nasal congestion. NECK: No stridor, no adenopathy, no meningismus, trachea is midline. LUNGS: Clear to auscultation bilaterally, no wheeze, no rhonchi, breath sounds equal. HEART: Without murmurs gallops or rubs, regular rate and rhythm. ABDOMEN: Soft, he does have some mild distention of the lower abdomen and his surgical incisions are leaking some clear to yellow fluid. His dressing is soaked. There is contusion about the lower abdomen near the surgical sites. This contusion extends around the right flank into the lower lumbar area. There is some subtle warmth and erythema noted. EXTREMITIES: No cyanosis, full range of motion of all the joints without pain or difficulty. Mild bilateral pedal edema. NEUROLOGIC: Oriented x 3, no acute motor or sensory deficits, no focal weakness. SKIN: No jaundice, no diaphoresis. DIFFERENTIAL DIAGNOSIS: Bladder rupture, urinary distention, UTI, bowel obstruction, constipation, hematoma, among others. EMERGENCY DEPARTMENT PROCEDURES: Bladder scan showed nearly 400 cc of urine, moderate retention. MEDICAL DECISION MAKING: There is a moderate leukocytosis, this could be consistent with infection or the stress of his current situation. Hemoglobin was elevated, likely from some dehydration. There was a normal platelet count. No coagulopathy. Creatinine was quite high at 3.1, consistent with some acute kidney injury. Lactic acid level was not elevated making severe sepsis less likely. There were some subtle liver enzyme elevations. No evidence for pancreatitis. Urinalysis shows some blood, no findings of infection. Chest x-ray did not show CHF or free air. Abdominal and pelvis CT shows inflammation to the abdominal wall consistent with postop changes versus cellulitis. There was no urinary obstruction. No bowel obstruction. Bladder scan did show moderate urinary retention. The patient had a Ashraf catheter placed, he had relief of some of his discomfort with the catheter placement. He received a 500 cc saline bolus. He was given IV Zofran for nausea, IV morphine for pain. He was given IV cefepime as antibiotic coverage. I did speak with urology. They saw the patient here at bedside. I spoke with the patient about his findings. I do think hospitalization is warranted given his presentation and findings. He appears to have a bladder leak, he was retaining urine, there appears to be evidence for some acute kidney injury, he may have an early abdominal wall cellulitis. I did speak with case management, the on-call hospitalist was consulted. Prior/Outside records/notes reviewed: None Imaging/x-ray results per my interpretation: Chest x-ray does not show CHF or free air. There is no pneumonia. Chronic Medical/Social conditions affecting care: None Care/Management discussed with: On-call urology-Dr. Almendarez. Case management and the on-call hospitalist. Level of care consideration(s): After review of the information above and other included data: --I believe the patient requires escalation of care to admission DISPOSITION: Admission Past Med/Surg History Problem List Leukocytosis (Acute) H/O prostatectomy (Acute) Bladder leak (Acute) Acute urinary retention (Acute) MARÍA (acute kidney injury) (Acute) Azotemia Encounter for pre-operative examination Prostate cancer MEGHNA on CPAP Low testosterone Left arm weakness Weakness (Acute) Hypothyroidism Hypertension Hx of colonic polyps Medical History BPH w urinary obs/LUTS Elevated PSA Atrial fibrillation follows with dr. chang, no cardioversion on Eliquis Hx of dizziness Hx of seborrheic keratosis Hx of eczema Arthritis BPH w urinary obs/LUTS Prostate cancer recently diagnosed per 01/11/24 urology note MEGHNA on CPAP Hypothyroidism Hx of basal cell carcinoma Hyperlipidemia Hypertension Surgical History Hx of prostate biopsy (2023) cancer History of basal cell carcinoma (BCC) excision Hx of colonoscopy with polypectomy History of surgery on right wrist (2004) pin Family History Father Hypertension Mother Hypertension Skin cancer Sister Hypothyroidism Social History Smoking Status: Never smoker Tobacco Type: Cigarettes Second Hand Exposure: No; Do You Dip or Chew Tobacco: No; Hx Alcohol Use: Yes Hx Substance Use: No Preferred Language: Ivorian Communication Ability: Effective Schedule Supervisor Required: No Beliefs That Will Affect Care: Jainism Jainism Beliefs: sabianism Current Living Situation: Spouse Feels Safe at Home: Yes Assistive Devices: CPAP Allergies Allergies Allergy/AdvReac Type Severity Reaction Status Date / Time ezetimibe Allergy Intermediate Edema, Verified 03/15/24 06:15 face, hands, legs [id number] Reductase AdvReac Intermediate Joint Pain Verified 03/15/24 07:16 Inhibitor Home Meds Home Medications Medication Instructions Recorded Confirmed bupropion HCl 150 mg 24 hr tablet, 150 mg PO QAM 05/12/22 03/23/24 extended release diltiazem HCl 180 mg 180 mg PO QPM 05/12/22 03/23/24 capsule,extended release 24 hr telmisartan 20 mg tablet 20 mg PO QPM 05/12/22 03/23/24 levothyroxine 200 mcg tablet 200 mcg PO QPM 10/26/23 03/23/24 [place] Mushroom 1 unit PO QAM 02/29/24 03/23/24 apixaban 5 mg tablet (Eliquis) 5 mg PO BID 02/29/24 03/23/24 meclizine 50 mg tablet (Antivert) 50 mg PO BID PRN Vertigo 02/29/24 03/23/24 tamsulosin 0.4 mg capsule 0.4 mg PO QAM 02/29/24 03/23/24 levothyroxine 50 mcg tablet 50 mcg PO QPM 03/15/24 03/23/24 Previous Rx's Medication Instructions Recorded docusate sodium 100 mg capsule 100 mg PO BID #30 caps 03/16/24 (Colace) oxycodone 5 mg tablet 5 mg PO Q8H PRN pain #7 tabs 03/16/24 Results & Data (ED) Vital Signs Vital Signs - 24 hr 03/23/24 13:16 03/23/24 14:16 03/23/24 14:45 Temperature 36.6 C Temperature Source Temporal Artery Scan Pulse Rate 98 H 85 Pulse Rate [Finger] 86 Respiratory Rate 14 18 24 Respiratory Effort / Characteristics Non-Labored Non-Labored Respiratory Depth Normal Normal Respiratory Pattern Regular Regular Blood Pressure 153/91 H 143/83 H Blood Pressure [Right Arm] 164/75 H Blood Pressure Mean 111 103 Blood Pressure Mean [Right Arm] 104 Blood Pressure Position [Right Arm] Pulse Oximetry 95 95 96 Oxygen Delivery Method Room Air Room Air Room Air Sepsis Recent Fever Within 48 Hours No Sepsis New/Unexplained Change in Mental Status N/A Sepsis Action Taken by Nursing No Action Required 03/23/24 14:52 03/23/24 15:00 03/23/24 16:00 Temperature Temperature Source Pulse Rate 82 84 Pulse Rate [Finger] 86 Respiratory Rate 24 24 20 Respiratory Effort / Characteristics Respiratory Depth Respiratory Pattern Blood Pressure 150/84 H 161/96 H Blood Pressure [Right Arm] 111/79 Blood Pressure Mean 126 106 Blood Pressure Mean [Right Arm] 89 Blood Pressure Position [Right Arm] Semi-fowlers Pulse Oximetry 96 95 95 Oxygen Delivery Method Room Air Room Air Sepsis Recent Fever Within 48 Hours Sepsis New/Unexplained Change in Mental Status Sepsis Action Taken by Group Home Medications Current Medication List: was personally reviewed by me Laboratory Data Attestation: I reviewed the patient's lab results. 03/23/24 13:33 03/23/24 13:33 Lab Results 03/23/24 03/23/24 03/23/24 Range/Units 13:33 14:50 15:50 WBC 16.23 H (4.8-10.8) K/ul RBC 5.64 (4.70-6.10) M/uL Hgb 18.1 H (14.0-18.0) g/dl Hct 50.9 (42.0-52.0) % MCV 90.2 (80.0-100.0) fL MCH 32.1 (25.0-34.0) pg MCHC 35.6 (32.0-36.0) g/dL RDW Std Deviation 39.5 (36.4-46.3) fL RDW Coeff of Janelle 12.0 (11.5-14.5) % Plt Count 350 (130-400) K/uL MPV 9.1 L (9.4-12.4) fL Immature Gran % (Auto) 0.5 % Neut % (Auto) 83.4 % Lymph % (Auto) 4.6 % [place] % (Auto) 11.2 % Eos % (Auto) 0.1 % Baso % (Auto) 0.2 % Neut # (Auto) 13.54 H (1.40-6.50) K/uL Lymph # (Auto) 0.75 L (1.20-3.40) K/uL [place] # (Auto) 1.81 H (0.11-0.59) K/uL Eos # (Auto) 0.01 (0.00-0.50) K/uL Baso # (Auto) 0.04 (0.00-0.20) K/uL Immature Gran # (Auto) 0.08 (0.01-0.20) K/uL PT 10.9 (9.0-12.0) Seconds INR 1.0 (0.9-1.1) APTT 30 (21-31) Seconds PTT Ratio 1.1 Sodium 133 L (136-145) mmol/L Potassium 4.4 (3.5-5.1) mmol/L Chloride 99 (98-107) mmol/L Carbon Dioxide 22 (21-32) mmol/L Anion Gap 12 H (3-11) BUN 37 H (6-23) mg/dl Creatinine 3.11 H (0.6-1.4) mg/dl Est Cr Clr Drug Dosing Not Reportable eGFR 21.67 BUN/Creatinine Ratio 11.9 (10-20) Glucose 104 H (70-99(Fasting)) mg/dl Lactate 1.1 (0.4-2.0) mmol/L Calcium 10.0 (8.6-10.3) mg/dl Magnesium 2.1 (1.7-2.4) mg/dl Total Bilirubin 1.9 H (0.2-1.0) mg/dl AST 21 (13-39) U/L ALT 32 (7-52) U/L Alkaline Phosphatase 107 H (34-104) U/L Total Protein 8.0 (6.0-8.3) gm/dl Albumin 4.8 (3.4-5.0) gm/dl Globulin 3.2 (2.5-4.0) gm/dl Albumin/Globulin Ratio 1.5 (0.9-2) Lipase 11 (11-82) U/L Urine Color Yellow Urine Appearance Clear (Clear) Urine pH 5.0 (4.5-7.5) Ur Specific [place] 1.013 (1.000-1.030) Urine Protein Negative (Negative) Urine Glucose (UA) Negative (Negative) Urine Ketones Negative (Negative) Urine Blood 3+ H (Negative) Urine Nitrite Negative (Negative) Urine Bilirubin Negative (Negative) Urine Urobilinogen Negative (Negative) Ur Leukocyte Esterase Negative (Negative) Urine WBC (Auto) 0-5 (0-5) /hpf Urine RBC (Auto) 11-20 H (0-2) /hpf U Hyaline Cast (Auto) 0-2 (0-2) /lpf U Epithel Cells (Auto) 0-2 (0-2) /hpf Urine Bacteria (Auto) None Seen (None Seen) Administered Medications Discontinued Medications Sodium Chloride (Nss) 500 mls @ 999 mls/hr IV .Q31M ONE Stop: 03/23/24 14:49 Last Infusion: 03/23/24 16:37 Dose: Infused Documented By: Admin: 03/23/24 15:00 Dose: 999 mls/hr Documented By: HALEY Cefepime HCl (Maxipime 2000mg) 2,000 mg in 20 mls @ 5 mls/min IV NOW STA; Protocol Stop: 03/23/24 14:22 Last Admin: 03/23/24 14:59 Dose: 5 mls/min Documented By: HALEY Lidocaine HCl (Lidocaine 2% Jelly 5 Ml Tube) 5 ml EXT NOW ONE Stop: 03/23/24 14:59 Last Admin: 03/23/24 15:19 Dose: 5 ml Documented By: CEF Morphine Sulfate (Morphine Sulfate 4 Mg/Ml 1 Ml Carp\Vial) 4 mg IV NOW STA Stop: 03/23/24 13:45 Last Admin: 03/23/24 14:18 Dose: 4 mg Documented By: HALEY Ondansetron HCl (Ondansetron Inj 2 Mg/Ml 2 Ml Vial) 4 mg IV NOW STA Stop: 03/23/24 13:45 Last Admin: 03/23/24 14:18 Dose: 4 mg Documented By: HALEY Imaging Data Radiologist's Impression: Chest X-Ray 03/23/24 13:44 XR chest 1V portable HISTORY: 64 years-old Male sob acute shortness of breath COMPARISON: 03/04/2024 TECHNIQUE: AP view of the chest FINDINGS: Hypoinflation. Cardiomegaly with bronchovascular crowding. Mild bibasilar densities with blunting of the costophrenic angles. No pneumothorax or large pleural effusion. Bones appear grossly intact. IMPRESSION: 1. Cardiomegaly with hypoinflation. 2. Mild bibasilar densities favor atelectasis. A mild pneumonitis considered less likely. ACT 112: Negative or not required by law. The above report was generated using voice recognition software. It may contain grammatical, syntax or spelling errors. Electronically signed by: Kahlil Carroll M.D. 03/23/2024 2:17 PM Abdomen/Pelvis CT 03/23/24 14:18 CT abd pelvis wo con CLINICAL HISTORY: high creat, recent prostate surgery TECHNIQUE: Helical axial images of the abdomen and pelvis were obtained. Automated dose lowering techniques and/or adjustment according to patient size were utilized for this exam. This exam was performed without intravenous contrast. CT DOSE: 1458.15 mGy.cm COMPARISON: Comparison is made to MR prostate 10/12/2023 FINDINGS: Lower chest: Bibasilar atelectasis versus scarring is seen. Liver: Hepatic steatosis is noted. Gallbladder and biliary tree: Layering stones are seen in the gallbladder. No definite wall thickening is seen. No intra- or extrahepatic biliary ductal dilation. Pancreas: Unremarkable, no focal lesions. Spleen: Unremarkable. Adrenals: Tiny left adrenal nodule likely represents an adenoma. Kidneys and ureters: Unremarkable. Bladder: Unremarkable. Reproductive organs: Postsurgical changes of prostatectomy. Bowel: Diverticulosis is seen without diverticulitis. The appendix is normal. Lymph nodes Retroperitoneal: Unremarkable. Pelvic: Unremarkable. Mesenteric: Unremarkable. Peritoneum: Mild ascites is seen. Vessels: Atherosclerotic calcifications are seen. Abdominal wall: Minimal body wall edema. Subcutaneous emphysema is noted, possibly postprocedural. Bones: Degenerative changes in the visualized spine. IMPRESSION: 1. Mild ascites and anasarca may represent volume overload. No acute abnormality is seen filling particular no evidence of obstructive stone. 2. Subcutaneous emphysema is likely postprocedural or secondary to injection. Correlation with surgical history and physical exam is recommended to exclude cellulitis. 3. Postsurgical changes of prostatectomy. 4. Diverticulosis without diverticulitis. 5. Hepatic steatosis. ACT 112: Negative or not required by law. Electronically signed by: Mark Burris M.D. 03/23/2024 2:51 PM Discharge Plan Visit Data Chief Complaint: Infection, Wound Stated Complaint: PROSTATE INCISION LEAKING, ABD PAIN. SOB ED Provider: Juan Flores Discharge Problem: MARÍA (acute kidney injury), Acute urinary retention, Bladder leak, H/O prostatectomy, Leukocytosis Patient Disposition: Admitted As Inpatient Condition: Fair Forms Stand Alone Forms: [facility] [employer] Prescriptions Prescriptions: No Action bupropion HCl 150 mg tablet extended release 24 hr 150 mg PO QAM diltiazem HCl 180 mg capsule,extended release 24hr 180 mg PO QPM telmisartan 20 mg tablet 20 mg PO QPM levothyroxine 200 mcg tablet 200 mcg PO QPM Rx Instructions: take with 50 mcg to total 250mg Eliquis 5 mg tablet 5 mg PO BID [place] Mushroom 1 unit 1 unit PO QAM meclizine [Antivert] 50 mg tablet 50 mg PO BID PRN (Reason: Vertigo) tamsulosin 0.4 mg capsule 0.4 mg PO QAM levothyroxine 50 mcg Tablet 50 mcg PO QPM Rx Instructions: takes with 200mg to total 250 mg docusate sodium [Colace] 100 mg capsule 100 mg PO BID Qty: 30 0RF Rx Instructions: Take twice daily for 2 weeks, then as needed thereafter oxycodone 5 mg tablet 5 mg PO Q8H PRN (Reason: pain) Qty: 7 0RF Referrals Referrals: Criss Rondon DO [Primary Care Provider] - Discharge Problem: Leukocytosis Qualifiers: Leukocytosis type: unspecified Qualified Code(s): D72.829 - Elevated white blood cell count, unspecified
[2024-03-23 14:06] LABS: Alanine Aminotransferase 32 U/L (7-52); Albumin Globulin Ratio 1.5 (0.9-2); Albumin Level 4.8 gm/dl (3.4-5.0); Alkaline Phosphatase 107 U/L (34-104); Anion Gap 12 (3-11); Aspartate Aminotransferase 21 U/L (13-39); BUN Creatinine Ratio 11.9 (10-20); Bilirubin,Total 1.9 mg/dl (0.2-1.0); Blood Urea Nitrogen 37 mg/dl (6-23); Carbon Dioxide 22 mmol/L (21-32); Chloride 99 mmol/L (98-107); Globulin 3.2 gm/dl (2.5-4.0); Glucose 104 mg/dl (70-99(Fasting)); Lipase 11 U/L (11-82); Magnesium 2.1 mg/dl (1.7-2.4); Potassium 4.4 mmol/L (3.5-5.1); Sodium 133 mmol/L (136-145)
[2024-03-23] MEDS: MoRPHine SULFATE 4 MG/ML 1 ML CARP\\VIAL IV STA (14:18)
[2024-03-23] MEDS: ONDANSETRON INJ 2 MG/ML 2 ML VIAL IV STA (14:18)
--- NOTE | 2024-03-23 14:18 | XRay Report ---
XR chest 1V portable HISTORY: 64 years-old Male sob acute shortness of breath COMPARISON: 03/04/2024 TECHNIQUE: AP view of the chest FINDINGS: Hypoinflation. Cardiomegaly with bronchovascular crowding. Mild bibasilar densities with blunting of the costophrenic angles. No pneumothorax or large pleural effusion. Bones appear grossly intact. IMPRESSION: 1. Cardiomegaly with hypoinflation. 2. Mild bibasilar densities favor atelectasis. A mild pneumonitis considered less likely. ACT 112: Negative or not required by law. The above report was generated using voice recognition software. It may contain grammatical, syntax o r spelling errors. Electronically signed by: Kahlil Carroll M.D. 03/23/2024 2:17 PM
--- NOTE | 2024-03-23 14:52 | CT Scan Report ---
CT abd pelvis wo con CLINICAL HISTORY: high creat, recent prostate surgery TECHNIQUE: Helical axial images of the abdomen and pelvis were obtained. Automated dose lowering tech niques and/or adjustment according to patient size were utilized for this exam. This exam was perfor med without intravenous contrast. CT DOSE: 1458.15 mGy.cm COMPARISON: Comparison is made to MR prostate 10/12/2023 FINDINGS: Lower chest: Bibasilar atelectasis versus scarring is seen. Liver: Hepatic steatosis is noted. Gallbladder and biliary tree: Layering stones are seen in the gallbladder. No definite wall thickenin g is seen. No intra- or extrahepatic biliary ductal dilation. Pancreas: Unremarkable, no focal lesions. Spleen: Unremarkable. Adrenals: Tiny left adrenal nodule likely represents an adenoma. Kidneys and ureters: Unremarkable. Bladder: Unremarkable. Reproductive organs: Postsurgical changes of prostatectomy. Bowel: Diverticulosis is seen without diverticulitis. The appendix is normal. Lymph nodes Retroperitoneal: Unremarkable. Pelvic: Unremarkable. Mesenteric: Unremarkable. Peritoneum: Mild ascites is seen. Vessels: Atherosclerotic calcifications are seen. Abdominal wall: Minimal body wall edema. Subcutaneous emphysema is noted, possibly postprocedural. Bones: Degenerative changes in the visualized spine. IMPRESSION: 1. Mild ascites and anasarca may represent volume overload. No acute abnormality is seen filling par ticular no evidence of obstructive stone. 2. Subcutaneous emphysema is likely postprocedural or secondary to injection. Correlation with surgi maria r history and physical exam is recommended to exclude cellulitis. 3. Postsurgical changes of prostatectomy. 4. Diverticulosis without diverticulitis. 5. Hepatic steatosis. ACT 112: Negative or not required by law. Electronically signed by: Mark Burris M.D. 03/23/2024 2:51 PM
[2024-03-23 14:59] LABS: Partial Thromboplastin Ratio 1.1; Partial Thromboplastin Time 30 Seconds (21-31); Prothrombin Time 10.9 Seconds (9.0-12.0)
[2024-03-23] MEDS: CEFEPIME 2000MG 2,000 MG/20 ML SYR IV STA (14:59)
[2024-03-23] MEDS: SODIUM CHLORIDE 0.9% 500 ML IV ONE (15:00)
[2024-03-23] MEDS: LIDOCAINE 2% JELLY 5 ML TUBE EXT ONE (15:19)
--- NOTE | 2024-03-23 16:01 | Urology Consultation ---
Date of Consultation March 23, 2024 Assessment & Plan (1) Prostate cancer: This is a 64-year-old male with history of prostate cancer status post robotic assisted laparoscopic radical retropubic prostatectomy on 03/15/2024. He was discharged on postop day 1 with Ashraf catheter. His Ashraf catheter was removed in the urology clinic on 03/21/2024. He presented to the emergency department today for evaluation of leakage of fluid from his surgical incisions and lower abdominal pain. Patient is afebrile Labs reviewedcreatinine 3.11, WBC 16.23, hemoglobin 18.1 CT abdomen pelvis shows no hydronephrosis, bladder distended and urine leak present Recommend placement of Ashraf catheter Discussed that MARÍA is reabsorptive and will get better with Ashraf catheter Recommend cover patient with antibiotics as a precaution for possible cellulitis We will arrange follow-up with urology next week with repeat lab work Okay to discharge home from urology standpoint with Ashraf catheter Plan of care discussed with Dr. Mcmanus Revisited patient in ED, present. Ashraf catheter is patent and draining appropriately. Admitting hospitalist, Dr. Russo, present. Discussed with patient/spouse options for discharge to home with catheter, antibiotics, and close follow-up versus overnight observation. After discussion, patient would like to be admitted for observation. Patient will be admitted to the hospital medicine service, appreciate assistance. Will plan to recheck labs tomorrow and hopefully discharge if he is progressing appropriately. History of Present Illness Reason for Consultation: MARÍA status post prostatectomy Requesting Physician: Dr. Flores History of Present Illness This is a 64-year-old male with history of prostate cancer status post robotic assisted laparoscopic radical retropubic prostatectomy on 03/15/2024. He was discharged on postop day 1 with Ashraf catheter. His Ashraf catheter was removed in the urology clinic on 03/21/2024. He presented to the emergency department today for evaluation of leakage of fluid from his surgical incisions and lower abdominal pain. On arrival, he was afebrile, hypertensive. Lab work showed white count of 16.23, hemoglobin 18.1, creatinine 3.11. Bladder scan 400 mL. Workup in the emergency department included CT abdomen pelvis without contrast. CT imaging independently reviewed and demonstrates distended bladder with urine leak. Blood cultures obtained and pending. Urology is consulted for MARÍA status post prostatectomy. Patient seen and examined in the emergency department. He is awake and resting in litter. He reports he was feeling well postoperatively. His symptoms began after catheter removal this week. He developed lower abdominal discomfort and bloating. He noted that his left port incision has been draining clear yellow fluid. He has been voiding spontaneously, but low output. He resumed his Eliquis this week and noted bruising from midline to right side. He reports nausea and 1 episode of emesis. No measured fevers at home. He reports using Fleets enema at home x 2. Allergies Allergy/AdvReac Type Severity Reaction Status Date / Time ezetimibe Allergy Intermediate Edema, Verified 03/15/24 06:15 face, hands, legs [id number] Reductase AdvReac Intermediate Joint Pain Verified 03/15/24 07:16 Inhibitor Home Medications Medication Instructions Recorded Confirmed Type bupropion HCl 150 mg 24 hr tablet, 150 mg PO QAM 05/12/22 03/23/24 History extended release diltiazem HCl 180 mg 180 mg PO QPM 05/12/22 03/23/24 History capsule,extended release 24 hr telmisartan 20 mg tablet 20 mg PO QPM 05/12/22 03/23/24 History levothyroxine 200 mcg tablet 200 mcg PO QPM 10/26/23 03/23/24 History [place] Tail Mushroom 1 unit PO QAM 02/29/24 03/23/24 History apixaban 5 mg tablet (Eliquis) 5 mg PO BID 02/29/24 03/23/24 History meclizine 50 mg tablet (Antivert) 50 mg PO BID PRN Vertigo 02/29/24 03/23/24 History tamsulosin 0.4 mg capsule 0.4 mg PO QAM 02/29/24 03/23/24 History levothyroxine 50 mcg tablet 50 mcg PO QPM 03/15/24 03/23/24 History docusate sodium 100 mg capsule 100 mg PO BID #30 caps 03/16/24 03/23/24 Rx (Colace) oxycodone 5 mg tablet 5 mg PO Q8H PRN pain #7 tabs 03/16/24 03/23/24 Rx Patient History Medical History BPH w urinary obs/LUTS Elevated PSA Atrial fibrillation follows with dr. chang, no cardioversion on Eliquis Hx of dizziness Hx of seborrheic keratosis Hx of eczema Arthritis BPH w urinary obs/LUTS Prostate cancer recently diagnosed per 01/11/24 urology note MEGHNA on CPAP Hypothyroidism Hx of basal cell carcinoma Hyperlipidemia Hypertension Surgical History Hx of prostate biopsy (2023) cancer History of basal cell carcinoma (BCC) excision Hx of colonoscopy with polypectomy History of surgery on right wrist (2004) pin Family History Father Hypertension Mother Hypertension Skin cancer Sister Hypothyroidism Social History Smoking Status: Never smoker Tobacco Type: Cigarettes Second Hand Exposure: No; Do You Dip or Chew Tobacco: No; Hx Alcohol Use: Yes Hx Substance Use: No Preferred Language: Persian Communication Ability: Effective Airline Radio Operator Required: No Beliefs That Will Affect Care: Samaritan Samaritan Beliefs: alevism Current Living Situation: Spouse Feels Safe at Home: Yes Assistive Devices: CPAP Review of Systems Review of Systems: All systems reviewed & are unremarkable except as noted in HPI & below Physical Exam Constitutional: well developed and well nourished; no acute distress Respiratory: normal respiratory effort; no respiratory distress and no labored breathing Gastrointestinal (Abdomen): Inspection/Auscultation: + abdomen distended Musculoskeletal: Head/Neck/Chest: normocephalic Skin: Left lateral incision with dermabond, no active drainage during exam Midline incision and right lateral incisions intact with dermabond with surrounding ecchymoses that tracks to right hip, right flank and back Neurologic: moves all extremities and awake Psychiatric: Orientation: alert and oriented x 3 Results & Data Vital Signs (Past 12 Hours) Vital Signs Temp Pulse Pulse Resp BP BP Pulse Ox 03/23/24 15:00 84 24 161/96 H 95 03/23/24 14:52 82 24 150/84 H 96 03/23/24 14:45 85 24 143/83 H 96 03/23/24 14:16 86 18 164/75 H 95 03/23/24 13:16 36.6 C 98 H 14 153/91 H 95 O2 Del Method 03/23/24 15:00 Room Air 03/23/24 14:52 03/23/24 14:45 Room Air 03/23/24 14:16 Room Air 03/23/24 13:16 Room Air PG Care Time/CCT Total # of Minutes Spent Total Time Spent with Patient: Total time spent is greater than 50% in coordination of care (as documented) at patient's floor/unit and/or counseling patient: Coding Level of Care Code 46712 IN/OBS CONSULT LVL 4,60M Diagnoses Prostate cancer C61
[2024-03-23 16:09] LABS: Appearance Urine Clear (Clear); Bacteria Urine Automated None Seen (None Seen); Bilirubin Urine Negative (Negative); Blood Urine 3+ (Negative); Cast Urine Automated 0-2 /lpf (0-2); Color Urine Yellow; Epithelial Cell Urine Auto 0-2 /hpf (0-2); Glucose Urine UA Negative (Negative); Ketones Urine Negative (Negative); Leukocyte Esterase Urine Negative (Negative); Nitrite Urine Negative (Negative); Protein Urine Negative (Negative); Specific Gravity Urine 1.013 (1.000-1.030); Urobilinogen Urine Negative (Negative); WBC Urine Automated 0-5 /hpf (0-5)
--- NOTE | 2024-03-23 16:52 | History & Physical Report ---
Date of Service March 23, 2024 Assessment & Plan (1) Azotemia: Plan: Bridger is a 64-year-old male with a recent history of MEGHNA, hypothyroidism, hypertension and recent radical retropubic prostatectomy 03/15/2024 who presents with urine leakage from his abdominal incision, acute renal failure, and severe pain. Patient was suspected to have a urine leak with bladder distention but no hydronephrosis and resorptive MARÍA not truly reflective of renal failure. Case was reviewed by urology who suspected reactive leukocytosis and resorptive MARÍA and likely okay for discharge home. This was offered and discussed with patient however given marked elevation in creatinine, pain, and distant travel patient referred observation to ensure that his white count/creatinine were improving prior to discharge which is reasonable. Patient is admitted for monitoring overnight following placement of Ashraf catheter. Resorptive azotemia Baseline creatinine less than 1, creatinine on admission elevated at 3.11 Likely due to a urine leak post prostatectomy. Patient with significant bladder distention and pain following Ashraf removal. This was replaced with drainage of yellow urine and immediate resolution of his pain. No evidence of hydronephrosis. Suspect of resorptive azotemia from urine leak rather than filtration deficit however given marked elevation on shared decision making patient strongly prefers observation overnight to ensure does not show signs of developing/worsening infection and then his renal function is improving. Morning BMP ordered Continue to maintain Ashraf. Will have outpatient urology follow-up in approximately 1 week Prostate cancer s/p retropubic prostatectomy Urology following Ashraf replaced No indication for surgical intervention at this time Postoperative right flank hematoma is noted. Some slight warmth to this. No areas of fluctuance. Treated with a reviewed 5-day course of Keflex given elevated of white count although does not appear overtly cellulitic. CBC daily CT shows mild ascites and anasarca. No significant for abnormalities, steatosis is noted. Patient not hypoxic and does not show evidence of pulmonary edema. No history of CHF. Hypothyroidism Home Synthroid continued TSH pending Hypertension Telmisartan held pending improvement in renal function History of A-fib Patient reports this was a single provoked episode in the setting of carbon dioxide (? Monoxide) poisoning in his home. Has never had recurrent A-fib in the last several years but still takes Eliquis and diltiazem. Patient reports he would strongly prefer to discontinue Eliquis if it is not needed. Did have an extensive discussion regarding risk/benefits of Eliquis prophylaxis for A-fib which does tend to be recurrent or eventually recurred given time. He is also at increased risk with this with a history of sleep apnea. He is in sinus on admission. Given that he has been in sinus remained so on admission, and does have a developing hematoma postoperatively we will hold Eliquis on admission. Long-term encourage patient to continue this as he is a high risk of recurrence, but given that his initial episode was provoked is not unreasonable to follow-up with his [facility] grouter helper for an event monitor and discussion of discontinuing this if no evidence of recurrent A-fib. Patient also notes that he wears a exercise watch which would notify him if he switched into this. Will defer additional for outpatient follow-up Diltiazem is continued MEGHNA: Continue CPAP DVT prophylaxis: Eliquis has been held. SCDs. Subcu heparin deferred due to hematoma overlying belly with urine leak and concern for possible developing cellulitis CODE STATUS: Full code Diet: Heart healthy (2) MEGHNA on CPAP: (3) Hypothyroidism: (4) Hypertension: History of Present Illness Primary Care Provider: Criss Rondon DO Bridger is a 64-year-old male with a recent history of MEGHNA, hypothyroidism, hype rtension and recent radical retropubic prostatectomy 03/15/2024 who presents with urine leakage from his abdominal incision, acute renal failure, and severe pain. Patient was suspected to have a urine leak with bladder distention but no hydronephrosis and resorptive MARÍA not truly reflective of renal failure. Case was reviewed by urology who suspected reactive leukocytosis and resorptive MARÍA and likely okay for discharge home. This was offered and discussed with patient however given marked elevation in creatinine, pain, and distant travel patient referred observation to ensure that his white count/creatinine were improving prior to discharge which is reasonable. Patient is admitted for monitoring overnight following placement of Ashraf catheter. Bridger is seen at the bedside Mark reports that after his prostatectomy he initially did well until he had his Ashraf removed. Following this he has had progressive severe pain in his abdomen and suprapubic region. He is also noticed large amounts around 8 to 10 ounces just last night of fluid draining from his left most lap incision site. Has also had some scrotal bruising which developed, and a hematoma wrapping around his right flank. He reports his pain was 11/10 and he normally is a good pain tolerance before coming in, after Ashraf placement his pain is nearly completely resolved. Also concerned about his Eliquis would like to discontinue this in the future. Notes that he does single episode of A-fib around Carbon dioxide poisoning in the home however since this was addressed he has not had any recurrent A-fib in the last few years. Follows with [facility] cardiology. Did discuss that if his first episode of A-fib was provoked and without recurrence may be reasonable to discuss this however people with A-fib have a tendency to eventually have recurrent A-fib at some point from a variety of factors and he is at increased risk due to his underlying sleep apnea. Given this and the fact that most of bleeding can be treated while cardioembolic strokes can be devastating and irreversible generally do lead on the side of long-term anticoagulation. Given his developing hematoma and that he is in sinus rhythm reasonable to hold this for now however encourage patient to discuss this with his cardiology team on discharge to which she is agreeable. Patient also reports he has not had his thyroid checked, and would like this rechecked to make sure his Synthroid does not need a dose adjustment. Was joined by urology at time of admitting assessment. Given that his elevated creatinine is likely resorptive and his pain is greatly improved would be reasonable to return home. Does have an elevated white count but without a true left shift and may be reactive and patient does not appear septic. This was off ered to patient bedside however does note that his creatinine, which is markedly elevated at 3 times normal, and white count does make him a little reticent and prefer overnight observation to ensure his labs are stable/improving. Given his elevated white count, concern for potential cellulitis, and markedly elevated creatinine this is certainly reasonable and patient is admitted to medicine serv ice. Urology following, no indication for surgical management at this time. Patient will follow-up as an outpatient in approximately 1 week for further Ashraf management if doing well. She had no other questions at time of bedside. Medical History: Reviewed Medications: Reviewed Surgical History: Reviewed Family history: Reviewed Allergies: Reviewed Social History: +Zyn use. Declines nicotine gum/patch. No recent ETOH use in the last several weeks. Drinks socially prior to this Code Status: Full Allergies Allergy/AdvReac Type Severity Reaction Status Date / Time ezetimibe Allergy Intermediate Edema, Verified 03/15/24 06:15 face, hands, legs [id number] Reductase AdvReac Intermediate Joint Pain Verified 03/15/24 07:16 Inhibitor Home Medications Medication Instructions Recorded Confirmed Type bupropion HCl 150 mg 24 hr tablet, 150 mg PO QAM 05/12/22 03/23/24 History extended release diltiazem HCl 180 mg 180 mg PO QPM 05/12/22 03/23/24 History capsule,extended release 24 hr telmisartan 20 mg tablet 20 mg PO QPM 05/12/22 03/23/24 History levothyroxine 200 mcg tablet 200 mcg PO QPM 10/26/23 03/23/24 History [place] Mushroom 1 unit PO QAM 02/29/24 03/23/24 History apixaban 5 mg tablet (Eliquis) 5 mg PO BID 02/29/24 03/23/24 History meclizine 50 mg tablet (Antivert) 50 mg PO BID PRN Vertigo 02/29/24 03/23/24 History tamsulosin 0.4 mg capsule 0.4 mg PO QAM 02/29/24 03/23/24 History levothyroxine 50 mcg tablet 50 mcg PO QPM 03/15/24 03/23/24 History docusate sodium 100 mg capsule 100 mg PO BID #30 caps 03/16/24 03/23/24 Rx (Colace) oxycodone 5 mg tablet 5 mg PO Q8H PRN pain #7 tabs 03/16/24 03/23/24 Rx Past Med/Surg History Problem List (Updated 03/23/24 @ 16:47 by Tima Russo MD) Azotemia Encounter for pre-operative examination Prostate cancer MEGHNA on CPAP Low testosterone Left arm weakness Weakness (Acute) Hypothyroidism Hypertension Hx of colonic polyps Medical History BPH w urinary obs/LUTS Elevated PSA Atrial fibrillation follows with dr. chang, no cardioversion on Eliquis Hx of dizziness Hx of seborrheic keratosis Hx of eczema Arthritis BPH w urinary obs/LUTS Prostate cancer recently diagnosed per 01/11/24 urology note MEGHNA on CPAP Hypothyroidism Hx of basal cell carcinoma Hyperlipidemia Hypertension Surgical History Hx of prostate biopsy (2023) cancer History of basal cell carcinoma (BCC) excision Hx of colonoscopy with polypectomy History of surgery on right wrist (2004) pin Family History Father Hypertension Mother Hypertension Skin cancer Sister Hypothyroidism Social History Smoking Status: Never smoker Tobacco Type: Cigarettes Second Hand Exposure: No; Do You Dip or Chew Tobacco: No; Hx Alcohol Use: Yes Hx Substance Use: No Preferred Language: Algerian Communication Ability: Effective Sheetrock Applicator Required: No Beliefs That Will Affect Care: Orthodox Orthodox Beliefs: sabianist Current Living Situation: Spouse Feels Safe at Home: Yes Assistive Devices: CPAP Physical Exam Physical Exam: General: A&Ox3. NAD. Cooperative. HEENT: Atraumatic, normocephalic. Vision and hearing grossly intact Pulm: CTAB A&P. -wheezes, -rales, -rhonchi. Symmetrical chest rise. No increased work of breathing. No respiratory distress. Cardiac: RRR, -mrg. Radial pulses intact and symmetrical. Abdominal: Lap incision sites are healing. Left most abdominal incision site is leaking light yellow fluid on palpation. Hematoma extended from the umbilical region wrapping around the right flank is present without firmness. mild warmth. Mild erythema without demarkated borders : Ashraf in place draining yellow urine. +scrotal hematoma without significant pain. Extremities: Warm, dry. Well-perfused. Extremities equally, sensation grossly intact in hands and feet bilaterally Results & Data Results & Data Vital Signs (Past 12 Hours) Vital Signs Temp Pulse Pulse Resp BP BP Pulse Ox 03/23/24 15:00 84 24 161/96 H 95 03/23/24 14:52 82 24 150/84 H 96 03/23/24 14:45 85 24 143/83 H 96 03/23/24 14:16 86 18 164/75 H 95 03/23/24 13:16 36.6 C 98 H 14 153/91 H 95 O2 Del Method 03/23/24 15:00 Room Air 03/23/24 14:52 03/23/24 14:45 Room Air 03/23/24 14:16 Room Air 03/23/24 13:16 Room Air PG Care Time/CCT Total # of Minutes Spent Total Time Spent with Patient: Total time spent is greater than 50% in coordination of care (as documented) at patient's floor/unit and/or counseling patient: Coding Level of Care Code 01754 INT INP/OBS CARE 3/75MIN Diagnoses Azotemia R79.89 MEGHNA on CPAP G47.33; Z99.89 Hypothyroidism E03.9 Hypertension I10
[2024-03-23] MEDS ORDERED: ACETAMINOPHEN 325 MG TAB PO PRN (19:09)
[2024-03-23] MEDS ORDERED: ONDANSETRON INJ 2 MG/ML 2 ML VIAL IV PRN (19:09)
[2024-03-23] MEDS ORDERED: MECLIZINE HCL 25 MG TAB PO PRN (19:09)
[2024-03-23] MEDS ORDERED: oxyCODONE HCL IR 5 MG TAB (IMMEDIATE RELEASE) PO PRN (19:09)
[2024-03-23] MEDS: LEVOTHYROXINE SODIUM 50 MCG TABLET PO SCH (20:40)
[2024-03-23] MEDS: DOCUSATE SODIUM 100 MG CAP PO SCH (20:40)
[2024-03-23] MEDS: LEVOTHYROXINE SODIUM 200 MCG TABLET PO SCH (20:40)
[2024-03-23] MEDS: dilTIAZem HCL 180 MG CAPCR PO SCH (20:41)
[2024-03-23 21:56] VITALS: RESP 16
[2024-03-24] MEDS: buPROPion XL 150 MG TABCR PO SCH (08:19)
[2024-03-24] MEDS: TAMSULOSIN HCL 0.4 MG CAP PO SCH (08:19)
[2024-03-24 08:21] LABS: Thyroid Stimulating Hormone 12.494 uIu/ml (0.300-4.500)
[2024-03-24 08:36] VITALS: BP 116/68; PULSE 75; O2SAT 92
[2024-03-24 08:38] LABS: BUN Creatinine Ratio 23.9 (10-20); Calcium 8.8 mg/dl (8.6-10.3); Creatinine Clr Calc Pharmacy 108.8 ml/min
[2024-03-24 08:45] LABS: Hematocrit (blood only) 41.8 % (42.0-52.0); Hemoglobin 14.7 g/dl (14.0-18.0); Mean Corpuscular Hemoglobin 32.6 pg (25.0-34.0); Mean Corpuscular Hgb Conc 35.2 g/dL (32.0-36.0); Mean Corpuscular Volume 92.7 fL (80.0-100.0); Mean Platelet Volume 9.6 fL (9.4-12.4); Platelet Count 321 K/uL (130-400); Red Blood Count 4.51 M/uL (4.70-6.10); White Blood Count 10.39 K/ul (4.8-10.8)
[2024-03-24 08:57] LABS: T4 Free Thyroxine 1.57 ng/dl (0.61-1.60)
[2024-03-24] MEDS ORDERED: TURKEY TAIL MUSHROOM PO SCH (09:00)
--- NOTE | 2024-03-24 09:32 | Discharge Summary ---
Date of Service March 24, 2024 Admission HPI Per Admitting Provider Bridger is a 64-year-old male with a recent history of MEGHNA, hypothyroidism, hypertension and recent radical retropubic prostatectomy 03/15/2024 who presents with urine leakage from his abdominal incision, acute renal failure, and severe pain. Patient was suspected to have a urine leak with bladder distention but no hydronephrosis and resorptive MARÍA not truly reflective of renal failure. Case was reviewed by urology who suspected reactive leukocytosis and resorptive MARÍA and likely okay for discharge home. This was offered and discussed with patient however given marked elevation in creatinine, pain, and distant travel patient referred observation to ensure that his white count/creatinine were improving prior to discharge which is reasonable. Patient is admitted for monitoring overnight following placement of Sylvester catheter. Bridger is seen at the bedside Peter reports that after his prostatectomy he initially did well until he had his Sylvester removed. Following this he has had progressive severe pain in his abdomen and suprapubic region. He is also noticed large amounts around 8 to 10 ounces just last night of fluid draining from his left most lap incision site. Has also had some scrotal bruising which developed, and a hematoma wrapping around his right flank. He reports his pain was 11/10 and he normally is a good pain tolerance before coming in, after Sylvester placement his pain is nearly completely resolved. Also concerned about his Eliquis would like to discontinue this in the future. Notes that he does single episode of A-fib around Carbon dioxide poisoning in the home however since this was addressed he has not had any recurrent A-fib in the last few years. Follows with [facility] cardiology. Did discuss that if his first episode of A-fib was provoked and without recurrence may be reasonable to discuss this however people with A-fib have a tendency to eventually have recurrent A-fib at some point from a variety of factors and he is at increased risk due to his underlying sleep apnea. Given this and the fact that most of bleeding can be treated while cardioembolic strokes can be devastating and irreversible generally do lead on the side of long-term anticoagulation. Given his developing hematoma and that he is in sinus rhythm reasonable to hold this for now however encourage patient to discuss this with his cardiology team on discharge to which she is agreeable. Patient also reports he has not had his thyroid checked, and would like this rechecked to make sure his Synthroid does not need a dose adjustment. Was joined by urology at time of admitting assessment. Given that his elevated creatinine is likely resorptive and his pain is greatly improved would be reasonable to return home. Does have an elevated white count but without a true left shift and may be reactive and patient does not appear septic. This was offered to patient bedside however does note that his creatinine, which is markedly elevated at 3 times normal, and white count does make him a little reticent and prefer overnight observation to ensure his labs are stable/improving. Given his elevated white count, concern for potential cellulitis, and markedly elevated creatinine this is certainly reasonable and patient is admitted to medicine service. Urology following, no indication for surgical management at this time. Patient will follow-up as an outpatient in approximately 1 week for further Sylvester management if doing well. She had no other questions at time of bedside. Medical History: Reviewed Medications: Reviewed Surgical History: Reviewed Family history: Reviewed Allergies: Reviewed Social History: +Zyn use. Declines nicotine gum/patch. No recent ETOH use in the last several weeks. Drinks socially prior to this Code Status: Full Admission Exam Per Admitting Provider General: A&Ox3. NAD. Cooperative. HEENT: Atraumatic, normocephalic. Vision and hearing grossly intact Pulm: CTAB A&P. -wheezes, -rales, -rhonchi. Symmetrical chest rise. No increased work of breathing. No respiratory distress. Cardiac: RRR, -mrg. Radial pulses intact and symmetrical. Abdominal: Lap incision sites are healing. Left most abdominal incision site is leaking light yellow fluid on palpation. Hematoma extended from the umbilical region wrapping around the right flank is present without firmness. mild warmth. Mild erythema without demarkated borders : Sylvester in place draining yellow urine. +scrotal hematoma without significant pain. Extremities: Warm, dry. Well-perfused. Extremities equally, sensation grossly intact in hands and feet bilaterally Principal Diagnosis Resorptive Azotemia Discharge Exam Constitutional: well developed and well nourished; no acute distress Respiratory: normal respiratory effort; no respiratory distress and no labored breathing Gastrointestinal (Abdomen): Inspection/Auscultation: + abdomen distended Musculoskeletal: Head/Neck/Chest: normocephalic Skin: Left lateral incision with dermabond, no active drainage during exam Midline incision and right lateral incisions intact with dermabond with surrounding ecchymoses that tracks to right hip, right flank and back Neurologic: moves all extremities and awake Psychiatric: Orientation: alert and oriented x 3 Discharge Data Allergies Allergy/AdvReac Type Severity Reaction Status Date / Time ezetimibe Allergy Intermediate Edema, Verified 03/15/24 06:15 face, hands, legs [id number]-[id number] Reductase AdvReac Intermediate Joint Pain Verified 03/15/24 07:16 Inhibitor Consultations 03/23/24 15:04 Consult Urology Stat 03/23/24 15:05 ED Decision to Admit Stat Ordered Studies 03/23/24 14:18 CT abd pelvis wo con Stat Hospital Course (1) MARÍA (acute kidney injury): (2) Prostate cancer: (3) Atrial fibrillation: (4) Azotemia: (5) Bladder leak: Plan #Resorptive azotemia Creatinine improved from 3.11 to baseline after sylvester's. Likely due to a urine leak post prostatectomy. No evidence of hydronephrosis. Suspect of resorptive azotemia from urine leak. Will have outpatient urology follow-up in approximately 1 week Prostate cancer s/p retropubic prostatectomy Urology following; Sylvester replaced No indication for surgical intervention. -F/U in urology clinic next week. Hypothyroidism Home Synthroid continued TSH: 10 - could be because of acute illness; rec f/u with PCP and repeat TSH before up titrating synthroid. Hypertension Telmisartan restarted improvement in renal function History of A-fib - F/U cardiology for ? Continuation of Afib Diltiazem is continued Total Time Total Time Spent Total Time Spent (In Minutes): See attending's attestation Discharge Plan Discharge Items Patient Disposition: Home - Self-Care Reason For Visit: URINE LEAK POST PROSTATECTOMY Discharge Diagnosis: Resorptive Azotemia Condition on Discharge: Fair Activity: Resume your previous activity Non-emergency contact: Primary Care Provider and Urologist Call non-emergency contact if: your symptoms worsen Follow-up/Referrals: Criss Rondon DO [Primary Care Provider] - 03/31/24 11:05 am Diet: Regular Addtl Attending Provider Instructions: You were admitted to the hospital because your kidney numbers were high- this is thought secondary to your recent prostate surgery. Your lab work was normal prior to discharge. A discharge summary will be sent to your primary care physician to ensure continuity of care. Please bring this discharge summary with you to your next office appointment so that your provider can review it at that time. Medications: Your medication list has been reviewed and reconciled upon discharge to ensure accuracy and continuity of care. An updated list of all your medications is included with your hospital discharge paperwork. Please review this list closely and make note of any changes to your medications. - No medication changes. Follow up appointments: - Make a follow up appointment with your PCP within the next week. It is very important that you follow up with them shortly after discharge from the hospital. - You should follow up with urology next week. - Keep all of your follow up appointments as already scheduled. If you cannot make an appointment, notify your provider. CONTACT YOUR PRIMARY CARE PROVIDER if you experience any of the following: - Difficulty following your treatment plan - Difficulty taking any of your medications CALL 911 OR GO TO THE EMERGENCY DEPARTMENT if you experience any of the following: - Sudden, severe abdominal pain or nausea/vomiting - Severe chest pain or chest pain that radiates to your jaw or arm - Sudden, severe shortness of breath or difficulty breathing Pending Studies at Discharge: No Stand-Alone Forms: [facility], Smoking Cessation Medications and DC Order Prescriptions: Continued bupropion HCl 150 mg tablet extended release 24 hr 150 mg PO QAM diltiazem HCl 180 mg capsule,extended release 24hr 180 mg PO QPM telmisartan 20 mg tablet 20 mg PO QPM levothyroxine 200 mcg tablet 200 mcg PO QPM Rx Instructions: take with 50 mcg to total 250mg Eliquis 5 mg tablet 5 mg PO BID [place] Mushroom 1 unit 1 unit PO QAM meclizine [Antivert] 50 mg tablet 50 mg PO BID PRN (Reason: Vertigo) tamsulosin 0.4 mg capsule 0.4 mg PO QAM levothyroxine 50 mcg Tablet 50 mcg PO QPM Rx Instructions: takes with 200mg to total 250 mg docusate sodium [Colace] 100 mg capsule 100 mg PO BID Qty: 30 0RF Rx Instructions: Take twice daily for 2 weeks, then as needed thereafter oxycodone 5 mg tablet 5 mg PO Q8H PRN (Reason: pain) Qty: 7 0RF Discharge Orders: Discharge Order (Routine); Ordered 03/24/24 Ordered By: Jennifer Weinstein/Other Patient Handouts: Urinary Catheter Bag Empty Clean, Indwelling Urinary Catheter Dc, Leg Bag Care Dc Admission Data Admit Date/Time: 03/23/24 16:53 Attending Provider: Bigg Fernandez Admit Provider: Tima Russo Primary Care Provider: Criss Rondon Other Providers: Tim Almendarez; Tima Russo Other Interventions: Discharge Summary Assessment (RN) Last Done: 03/24/24 10:15 Supervising Physician Co-Signing Physician Notes I personally examined the patient and verified all alejandro points of history and exam, discussed case, and agree with decision making with Dr Tejada feeling good and would like to go home. Vitals noted, in general he is awake and alert pleasant no distress. HEENT normocephalic atraumatic mucous membranes moist. Breathing unlabored no accessory muscle use good effort. Skin without rashes pallor or icterus. Neuro without focal deficits. Leukocytosis/elevated creatinineall improved with catheter drainagesafe/stable for home. Outpatient urology follow-up.
--- NOTE | 2024-03-24 11:05 | Urology Progress Note ---
Date of Service March 24, 2024 Assessment & Plan (1) H/O prostatectomy: Plan: 64 yo/M with history of prostate cancer status post robotic assisted laparoscopic radical retropubic prostatectomy on 03/15/2024. He was discharged on postop day 1 with Ashraf catheter. His Ashraf catheter was removed in the urology clinic on 03/21/2024. He presented to the emergency department on 03/23 for evaluation of leakage of fluid from his surgical incisions and lower abdominal pain. CT imaging showed distended bladder, urine leak. Patient is afebrile and hemodynamically stable Subjectively feeling much better today Labs reviewedcreatinine 0.88, WBC 10.39, hemoglobin 14.7 Ashraf catheter was replaced yesterday, maintain catheter Creatinine has normalized Okay to discharge home from urology standpoint with Ashraf catheter Will arrange outpatient follow-up with urology Expected clinical course reviewed, all questions answered Admission and Anticipated Discharge Date Admission Date: March 23, 2024 Supervising Physician Co-Signing Physician Notes note opened in error, but unable to close without signing. please see hospitalist note instead for my input. Subjective Patient seen and examined at bedside this morning. He is awake and resting in bed. Reports he feels much better this morning. No significant pain or discomfort. He reports his left lateral port site and some drainage is overnight. Denies fever, chills, nausea or vomiting. Review of Systems Constitutional: as per Subjective / HPI Genitourinary: + as per Subjective / HPI Physical Exam Constitutional: well developed and well nourished; no acute distress Respiratory: normal respiratory effort; no respiratory distress and no labored breathing Gastrointestinal (Abdomen): Inspection/Auscultation: abdomen not distended Percussion/Palpation: abdomen soft Musculoskeletal: Head/Neck/Chest: normocephalic Skin: Serous drainage noted on left lateral incision dressing. Midline incision and right lateral incisions intact with dermabond with surrounding ecchymoses that tracks to right hip, right flank and back Neurologic: moves all extremities and awake Psychiatric: Orientation: alert and oriented x 3 Genitourinary: Ashraf draining appropriately with yellow urine Results & Data Vital Signs (Past 12 Hours) Vital Signs Temp Pulse Resp BP Pulse Ox O2 Del Method 03/24/24 07:45 36.6 C 75 16 116/68 92 Room Air PG Care Time/CCT Total # of Minutes Spent Total Time Spent with Patient: Total time spent is greater than 50% in coordination of care (as documented) at patient's floor/unit and/or counseling patient: Coding Level of Care Code 60317 SUB INP/OBS CARE 04/02MIN Diagnoses H/O prostatectomy Z90.79
--- NOTE | 2024-03-24 17:20 | Billing Data ---
Date of Service March 24, 2024 Coding Level of Care Code 31151 IN/OBS DISCH 30 MIN/LESS
== END 2024-03-24 11:27 | disposition home or self-care (01) ==
LOC: ED 12:59 → EDINP 16:53 → SUATTDRO 16:53 → INTOOBSV 16:53 → 3N 19:09